=== PATIENT | female | born 1960 | race Caucasian/White ===

== ENCOUNTER 2023-01-01 07:15 | Inpatient (IN) ==
[2023-01-01] MEDS ORDERED: ONDANSETRON INJ 2 MG/ML 2 ML VIAL IV STA ×2 (07:43→08:36)
[2023-01-01] MEDS ORDERED: MECLIZINE HCL 25 MG TAB PO STA (07:43)
--- NOTE | 2023-01-01 07:49 | Emergency Department Note ---
History of Present Illness General Chief complaint: Vertigo Stated complaint: VOMITING, DIZZY Time Seen by Provider: 01/01/23 07:34 Source: patient and family ( is at bedside) Mode of arrival: ambulatory Limitations: no limitations History of Present Illness This patient is a 59-year-old female who woke up at 545 and sat up and felt like the room was spinning. She got nauseated she had diarrhea and vomited. Her symptoms are worse with moving she does feel tingling in both of her legs she also feels like her vision is off in both of her eyes. No chest pain or shortness of breath .no headache. no fall or trauma. she is on no blood thinners. She had a history of a complicated migraine in the past she had a stroke work-up for she says. No fever or chills. no cough. No history of similar Home Medications Medication Instructions Recorded Confirmed Type atorvastatin 20 mg tablet (Lipitor) 20 mg PO QAM 10/11/20 01/01/23 History hydrochlorothiazide 25 mg tablet 25 mg PO QAM 10/11/20 01/01/23 History levothyroxine 75 mcg tablet 75 mcg PO QAM 10/11/20 01/01/23 History famotidine 20 mg tablet 20 mg PO BID 12/28/21 01/01/23 History pantoprazole 40 mg tablet,delayed 40 mg PO QAM 12/28/21 01/01/23 History release baclofen 10 mg tablet 10 mg PO HS PRN Muscle Spasm 01/01/23 01/01/23 History bupropion HCl 300 mg 24 hr tablet, 300 mg PO DAILY 01/01/23 01/01/23 History extended release celecoxib 100 mg capsule 100 mg PO BID 01/01/23 01/01/23 History hydroxyzine HCl 25 mg tablet 25 mg PO QID PRN Anxiety 01/01/23 01/01/23 History naltrexone 50 mg tablet 25 mg PO BID 01/01/23 01/01/23 History propranolol 20 mg tablet 20 mg PO BID 01/01/23 01/01/23 History valsartan 80 mg tablet 80 mg PO DAILY 01/01/23 01/01/23 History Allergies Allergy/AdvReac Type Severity Reaction Status Date / Time demeclocycline Allergy Intermediate Hives Verified 01/04/22 08:02 [From Declomycin] Past Med/Surg History Medical History Anxiety and depression Arthritis Asthma HAS NO RESCUE INHALER Degenerative disc disease Essential tremor Gastritis ? REASON FOR PROCEDURE History of colon polyps History of COVID-19 05/2021>FEVER/CHEST CONGESTION *RESOLVED Hyperlipidemia Hypertension Hypothyroidism Migraine Morbid obesity Sleep apnea CPAP Spinal stenosis Surgical History Family history of reaction to anesthesia FATHER>SLOW TO WAKE UP H/O lumbar discectomy H/O sinus surgery History of appendectomy History of cataract surgery RT/LEFT History of colonoscopy History of esophagogastroduodenoscopy (EGD) History of hysterectomy History of partial knee replacement RT History of repair of rotator cuff RT/LEFT History of tonsillectomy and adenoidectomy Social History Smoking Status: Never smoker Second Hand Exposure: No; Do You Dip or Chew Tobacco: No; Tobacco Cessation Education Requested by Patient: No Hx Alcohol Use: No Hx Substance Use: No Preferred Language: Bulgarian Laundry Sorter Required: No Beliefs That Will Affect Care: None Current Living Situation: Spouse Other Information That Helps Us Care for You: No Feels Safe at Home: Yes Safety Concerns: Feels Safe At This Time Assistive Devices: CPAP Review of Systems A total of 10 systems reviewed and were otherwise negative Physical Exam Vital Signs Vital Signs - 24 hr 01/01/23 07:23 01/01/23 07:39 01/01/23 07:35 Temperature 36.5 C Temperature Source Oral Pulse Rate 49 L 49 L Pulse Rate [Apical] 48 L Pulse Rhythm [Apical] Regular Respiratory Rate 18 16 Respiratory Effort / Characteristics Non-Labored Spontaneous Non-Labored Respiratory Depth Normal Normal Respiratory Pattern Regular Blood Pressure 147/77 H Blood Pressure [Right Arm] 148/98 H Blood Pressure Mean 100 Blood Pressure Mean [Right Arm] 114 Blood Pressure Position [Right Arm] Pulse Oximetry 96 98 Oxygen Delivery Method Room Air Room Air Sepsis Recent Fever Within 48 Hours No Sepsis New/Unexplained Change in Mental Status No Sepsis Action Taken by Nursing No Action Required 01/01/23 08:00 01/01/23 08:20 Temperature Temperature Source Pulse Rate Pulse Rate [Apical] 51 L 51 L Pulse Rhythm [Apical] Regular Regular Respiratory Rate 16 16 Respiratory Effort / Characteristics Non-Labored Non-Labored Respiratory Depth Normal Normal Respiratory Pattern Blood Pressure Blood Pressure [Right Arm] 167/80 H 165/95 H Blood Pressure Mean Blood Pressure Mean [Right Arm] 109 118 Blood Pressure Position [Right Arm] Standing Pulse Oximetry 98 97 Oxygen Delivery Method Room Air Room Air Sepsis Recent Fever Within 48 Hours Sepsis New/Unexplained Change in Mental Status Sepsis Action Taken by Nursing General: Well developed well nourished somewhat pale and diaphoretic middle-age female who in no acute respiratory distress, breathing comfortably on room air. Normal speech, nonslurred. Answers all questions appropriately alert [place] x3 she is holding emesis bag HEENT: Normal cephalic atraumatic. Pupils are equal round and reactive to light. Extraocular movements are intact. No nystagmus. Oropharynx is pink with moist mucous membranes. No swelling of the mouth lips or tongue. Neck: Supple with a midline trachea. No meningeal signs or stiffness, no JVD or bruits. No Stridor. Chest: Clear to auscultation bilaterally. No wheezes or rhonchi. No increased work of breathing. Heart: Regular rate and rhythm without murmurs or gallops. Abdomen: Soft nontender, nondistended without rebound guarding or rigidity. Extremities: No cyanosis clubbing or edema. No calf tenderness or assymetry Spine/Back. Non tender to palpation. No CVA tenderness Skin: Good turgor without rashes. Neurologic exam: Cranial nerves two through 12 are intact. Motor and sensation are intact and symmetrical throughout. No tremor. Course Administered Medications Hydroxyzine HCl (Hydroxyzine Hcl 25 Mg Tab) 25 mg PO QID PRN PRN Reason: Anxiety Stop: 01/31/23 10:40 Last Admin: 01/01/23 13:07 Dose: 25 mg Documented By: GONZALEZ Sodium Chloride (Nss 1000ml) 1,000 mls @ 50 mls/hr IV .Q20H KEENAN Stop: 01/31/23 07:44 Last Admin: 01/01/23 08:01 Dose: 50 mls/hr Documented By: DINA Meclizine HCl (Meclizine Hcl 25 Mg Tab) 25 mg PO TID PRN PRN Reason: Vertigo Stop: 01/31/23 10:40 Last Admin: 01/01/23 13:07 Dose: 25 mg Documented By: ES Discontinued Medications Aspirin (Aspirin Chew 324 Mg) 324 mg PO NOW STA Stop: 01/01/23 08:27 Last Admin: 01/01/23 08:34 Dose: 324 mg Documented By: DINA Ioversol (Optiray 320 125ml) 120 ml IV ONCE ONE Stop: 01/01/23 07:51 Last Admin: 01/01/23 07:51 Dose: 120 ml Documented By: HERIBERTO Meclizine HCl (Meclizine Hcl 25 Mg Tab) 25 mg PO NOW STA Stop: 01/01/23 07:44 Last Admin: 01/01/23 08:01 Dose: 25 mg Documented By: DINA Ondansetron HCl (Ondansetron Inj 2 Mg/Ml 2 Ml Vial) 4 mg IV NOW STA Stop: 01/01/23 07:44 Last Admin: 01/01/23 08:01 Dose: 4 mg Documented By: DINA Ondansetron HCl (Ondansetron Inj 2 Mg/Ml 2 Ml Vial) 4 mg IV NOW STA Stop: 01/01/23 08:37 Last Admin: 01/01/23 08:59 Dose: 4 mg Documented By: DINA Medical Decision Making Differential Diagnosis Peripheral vertigo, central vertigo, CVA, anemia, arrhythmia, cardiac disease, electrolyte or metabolic abnormality, intracranial process Medical Records Attestation: I reviewed the patient's medical records. Home Medications Current Medication List: was personally reviewed by me Laboratory Data Attestation: I reviewed the patient's lab results. 01/01/23 07:30 01/01/23 07:30 Lab Results 01/01/23 01/01/23 01/01/23 Range/Units 07:30 07:30 07:30 WBC 9.99 (4.8-10.8) K/ul RBC 4.64 (4.20-5.40) M/uL Hgb 15.5 (12.0-16.0) g/dl Hct 44.5 (37.0-47.0) % MCV 95.9 (80.0-100.0) fL MCH 33.4 (25.0-34.0) pg MCHC 34.8 (32.0-36.0) g/dL RDW Std Deviation 49.6 H (36.4-46.3) fL RDW Coeff of Darshan 14.1 (11.5-14.5) % Plt Count 235 (130-400) K/uL MPV 9.6 (9.4-12.4) fL Immature Gran % (Auto) 0.4 % Neut % (Auto) 63.2 % Lymph % (Auto) 27.5 % [place] % (Auto) 7.3 % Eos % (Auto) 1.0 % Baso % (Auto) 0.6 % Neut # (Auto) 6.31 (1.40-6.50) K/uL Lymph # (Auto) 2.75 (1.2-3.4) K/uL [place] # (Auto) 0.73 H (0.11-0.59) K/uL Eos # (Auto) 0.10 (0-0.50) K/uL Baso # (Auto) 0.06 (0-0.2) K/uL Immature Gran # (Auto) 0.04 (0.01-0.20) K/uL PT 10.6 (9.0-12.0) Seconds INR 1.0 (0.9-1.1) APTT 23.8 (21.0-31.0) Seconds PTT Ratio 0.8 Sodium 140 (136-145) mmol/L Potassium 3.9 (3.5-5.1) mmol/L Chloride 106 (98-107) mmol/L Carbon Dioxide 27 (21-32) mmol/L Anion Gap 7 (3-11) BUN 21 (6-23) mg/dl Creatinine 0.81 (0.6-1.2) mg/dl Est Cr Clr Drug Dosing Not Reportable Est GFR ( Amer) 89.6 ml/min Est GFR (Non-Af Amer) 77.3 ml/min BUN/Creatinine Ratio 25.9 H (10-20) Glucose 144 H (70-99(Fasting)) mg/dl POC Glucose (70-99) mg/dl Calcium 9.5 (8.6-10.3) mg/dl Magnesium 1.9 (1.7-2.4) mg/dl Total Bilirubin 1.1 H (0.2-1.0) mg/dl AST 19 (13-39) U/L ALT 13 (7-52) U/L Alkaline Phosphatase 92 (34-104) U/L Troponin I High Sens 4.3 (0-14) pg/ml Total Protein 6.9 (6.0-8.3) gm/dl Albumin 4.2 (3.4-5.0) gm/dl Globulin 2.7 (2.5-4.0) gm/dl Albumin/Globulin Ratio 1.6 (0.9-2) TSH (0.300-4.500) uIu/ml Free T4 (0.61-1.60) ng/dl 01/01/23 01/01/23 Range/Units 07:30 07:46 WBC (4.8-10.8) K/ul RBC (4.20-5.40) M/uL Hgb (12.0-16.0) g/dl Hct (37.0-47.0) % MCV (80.0-100.0) fL MCH (25.0-34.0) pg MCHC (32.0-36.0) g/dL RDW Std Deviation (36.4-46.3) fL RDW Coeff of Darshan (11.5-14.5) % Plt Count (130-400) K/uL MPV (9.4-12.4) fL Immature Gran % (Auto) % Neut % (Auto) % Lymph % (Auto) % [place] % (Auto) % Eos % (Auto) % Baso % (Auto) % Neut # (Auto) (1.40-6.50) K/uL Lymph # (Auto) (1.2-3.4) K/uL [place] # (Auto) (0.11-0.59) K/uL Eos # (Auto) (0-0.50) K/uL Baso # (Auto) (0-0.2) K/uL Immature Gran # (Auto) (0.01-0.20) K/uL PT (9.0-12.0) Seconds INR (0.9-1.1) APTT (21.0-31.0) Seconds PTT Ratio Sodium (136-145) mmol/L Potassium (3.5-5.1) mmol/L Chloride (98-107) mmol/L Carbon Dioxide (21-32) mmol/L Anion Gap (3-11) BUN (6-23) mg/dl Creatinine (0.6-1.2) mg/dl Est Cr Clr Drug Dosing Est GFR ( Amer) ml/min Est GFR (Non-Af Amer) ml/min BUN/Creatinine Ratio (10-20) Glucose (70-99(Fasting)) mg/dl POC Glucose 131 H (70-99) mg/dl Calcium (8.6-10.3) mg/dl Magnesium (1.7-2.4) mg/dl Total Bilirubin (0.2-1.0) mg/dl AST (13-39) U/L ALT (7-52) U/L Alkaline Phosphatase (34-104) U/L Troponin I High Sens (0-14) pg/ml Total Protein (6.0-8.3) gm/dl Albumin (3.4-5.0) gm/dl Globulin (2.5-4.0) gm/dl Albumin/Globulin Ratio (0.9-2) TSH 5.540 H (0.300-4.500) uIu/ml Free T4 0.83 (0.61-1.60) ng/dl Imaging Data Attestation: I personally reviewed and interpreted this imaging study as follows: My Impression: Head CT-no hemorrhage or mass effect seen Radiologist's Impression: Head CT 01/01/23 07:[address] OF THE BRAIN; CT ANGIOGRAM OF THE BRAIN; CT ANGIOGRAM OF THE NECK CLINICAL HISTORY: Neurological deficit. Stroke like symptoms. COMPARISON STUDY: No priors. TECHNIQUE: Unenhanced axial CT scan of the brain is performed. Subsequently, following the IV administration of 120 of Optiray 320, CT angiogram of the head and neck was performed from the aortic arch to the vertex. Images are reviewed in the axial, sagittal, and coronal planes. 3-D MIPS images are created and assessed. IV contrast was administered without complication. All measurements were calculated based on NASCET criteria. A dose lowering technique was utilized adhering to the principles of ALARA. CT DOSE: 1319.27 mGy.cm FINDINGS: Brain parenchyma: The brain parenchyma is normal in appearance. There is no hemorrhage, mass effect, or evidence of acute territorial ischemia by CT criteria. There is no evidence of enhancing mass lesion on the angiogram phase images. The ventricles, sulci, and cisterns are normal in configuration. A choroid fissure cyst versus prominent perivascular space is seen on the left. Back-white matter differentiation is preserved. No extra-axial fluid collection is seen. Thoracic aorta: Visualized portions of the thoracic aorta are normal in caliber. The aortic arch demonstrates standard 3-vessel anatomy. Right carotid arterial system: The right common carotid artery is widely patent, as are the right internal and external carotid arteries. Calcified plaque is noted in the carotid bulb. Left carotid arterial system: The left common carotid artery is widely patent, as on the left internal and external carotid arteries. Calcified plaque is noted in the carotid bulb. Vertebral arteries: The vertebral arteries are widely patent bilaterally noting mild left-sided dominance. Subclavian arteries: Widely patent bilaterally. Intracranial vasculature: There is atherosclerotic calcification of the cavernous carotid and vertebral arteries. The internal carotid arteries are patent at the skull base, as are the anterior and middle cerebral arteries bilaterally. The vertebrobasilar system and posterior cerebral arteries are widely patent. The left vertebral artery is dominant. There is no aneurysm, high-grade stenosis, or focal vessel cut off seen throughout the intracranial circulation. Jugular veins: Patent bilaterally. Dural sinuses: Patent. Lung apices: Partially visualized upper lobe lung parenchyma appears clear. Soft tissues: The visualized pharyngeal soft tissues are normal in appearance no ting angiographic phase technique. The oropharyngeal airway appears widely patent. The salivary and thyroid glands are normal in appearance. No cervical lymphadenopathy is seen. Skeletal structures: The skeletal structures are osteopenic. The calvarium appears intact. The cervical spine is maintained noting multilevel spondylosis. No lytic or blastic lesion is seen. Orbits: The bony orbits are intact. Orbital contents are normal as visualized n oting bilateral ocular lens implants. Sinuses and mastoids: Trace mucosal thickening is noted in the right maxillary antrum. The remaining paranasal sinuses are clear. The mastoid air cells are well pneumatized. IMPRESSION: 1. There is no hemorrhage, mass effect, or evidence of acute territorial ischemia by CT criteria. 2. Unremarkable CT angiogram of the brain. 3. Unremarkable CT angiogram of the neck. ACT 112: Negative or not required by law. Electronically signed by: Otoniel Parnell M.D. 01/01/2023 8:06 AM Head CTA 01/01/23 07:[address] OF THE BRAIN; CT ANGIOGRAM OF THE BRAIN; CT ANGIOGRAM OF THE NECK CLINICAL HISTORY: Neurological deficit. Stroke like symptoms. COMPARISON STUDY: No priors. TECHNIQUE: Unenhanced axial CT scan of the brain is performed. Subsequently, following the IV administration of 120 of Optiray 320, CT angiogram of the head and neck was performed from the aortic arch to the vertex. Images are reviewed in the axial, sagittal, and coronal planes. 3-D MIPS images are created and assessed. IV contrast was administered without complication. All measurements were calculated based on NASCET criteria. A dose lowering technique was utilized adhering to the principles of ALARA. CT DOSE: 1319.27 mGy.cm FINDINGS: Brain parenchyma: The brain parenchyma is normal in appearance. There is no hemorrhage, mass effect, or evidence of acute territorial ischemia by CT criteria. There is no evidence of enhancing mass lesion on the angiogram phase images. The ventricles, sulci, and cisterns are normal in configuration. A choroid fissure cyst versus prominent perivascular space is seen on the left. Back-white matter differentiation is preserved. No extra-axial fluid collection is seen. Thoracic aorta: Visualized portions of the thoracic aorta are normal in caliber. The aortic arch demonstrates standard 3-vessel anatomy. Right carotid arterial system: The right common carotid artery is widely patent, as are the right internal and external carotid arteries. Calcified plaque is noted in the carotid bulb. Left carotid arterial system: The left common carotid artery is widely patent, as on the left internal and external carotid arteries. Calcified plaque is noted in the carotid bulb. Vertebral arteries: The vertebral arteries are widely patent bilaterally noting mild left-sided dominance. Subclavian arteries: Widely patent bilaterally. Intracranial vasculature: There is atherosclerotic calcification of the cavernous carotid and vertebral arteries. The internal carotid arteries are patent at the skull base, as are the anterior and middle cerebral arteries bilaterally. The vertebrobasilar system and posterior cerebral arteries are widely patent. The left vertebral artery is dominant. There is no aneurysm, high-grade stenosis, or focal vessel cut off seen throughout the intracranial circulation. Jugular veins: Patent bilaterally. Dural sinuses: Patent. Lung apices: Partially visualized upper lobe lung parenchyma appears clear. Soft tissues: The visualized pharyngeal soft tissues are normal in appearance noting angiographic phase technique. The oropharyngeal airway appears widely patent. The salivary and thyroid glands are normal in appearance. No cervical lymphadenopathy is seen. Skeletal structures: The skeletal structures are osteopenic. The calvarium appears intact. The cervical spine is maintained noting multilevel spondylosis. No lytic or blastic lesion is seen. Orbits: The bony orbits are intact. Orbital contents are normal as visualized noting bilateral ocular lens implants. Sinuses and mastoids: Trace mucosal thickening is noted in the right maxillary antrum. The remaining paranasal sinuses are clear. The mastoid air cells are well pneumatized. IMPRESSION: 1. There is no hemorrhage, mass effect, or evidence of acute territorial ischemia by CT criteria. 2. Unremarkable CT angiogram of the brain. 3. Unremarkable CT angiogram of the neck. ACT 112: Negative or not required by law. Electronically signed by: Otoniel Parnell M.D. 01/01/2023 8:06 AM Neck CTA 01/01/23 07:[address] OF THE BRAIN; CT ANGIOGRAM OF THE BRAIN; CT ANGIOGRAM OF THE NECK CLINICAL HISTORY: Neurological deficit. Stroke like symptoms. COMPARISON STUDY: No priors. TECHNIQUE: Unenhanced axial CT scan of the brain is performed. Subsequently, following the IV administration of 120 of Optiray 320, CT angiogram of the head and neck was performed from the aortic arch to the vertex. Images are reviewed in the axial, sagittal, and coronal planes. 3-D MIPS images are created and assessed. IV contrast was administered without complication. All measurements were calculated based on NASCET criteria. A dose lowering technique was utilized adhering to the principles of ALARA. CT DOSE: 1319.27 mGy.cm FINDINGS: Brain parenchyma: The brain parenchyma is normal in appearance. There is no hemorrhage, mass effect, or evidence of acute territorial ischemia by CT criteria. There is no evidence of enhancing mass lesion on the angiogram phase images. The ventricles, sulci, and cisterns are normal in configuration. A choroid fissure cyst versus prominent perivascular space is seen on the left. G ray-white matter differentiation is preserved. No extra-axial fluid collection is seen. Thoracic aorta: Visualized portions of the thoracic aorta are normal in caliber. The aortic arch demonstrates standard 3-vessel anatomy. Right carotid arterial system: The right common carotid artery is widely patent, as are the right internal and external carotid arteries. Calcified plaque is noted in the carotid bulb. Left carotid arterial system: The left common carotid artery is widely patent, as on the left internal and external carotid arteries. Calcified plaque is noted in the carotid bulb. Vertebral arteries: The vertebral arteries are widely patent bilaterally noting mild left-sided dominance. Subclavian arteries: Widely patent bilaterally. Intracranial vasculature: There is atherosclerotic calcification of the cavernous carotid and vertebral arteries. The internal carotid arteries are patent at the skull base, as are the anterior and middle cerebral arteries bilaterally. The vertebrobasilar system and posterior cerebral arteries are widely patent. The left vertebral artery is dominant. There is no aneurysm, high-grade stenosis, or focal vessel cut off seen throughout the intracranial circulation. Jugular veins: Patent bilaterally. Dural sinuses: Patent. Lung apices: Partially visualized upper lobe lung parenchyma appears clear. Soft tissues: The visualized pharyngeal soft tissues are normal in appearance noting angiographic phase technique. The oropharyngeal airway appears widely patent. The salivary and thyroid glands are normal in appearance. No cervical lymphadenopathy is seen. Skeletal structures: The skeletal structures are osteopenic. The calvarium appears intact. The cervical spine is maintained noting multilevel spondylosis. No lytic or blastic lesion is seen. Orbits: The bony orbits are intact. Orbital contents are normal as visualized noting bilateral ocular lens implants. Sinuses and mastoids: Trace mucosal thickening is noted in the right maxillary antrum. The remaining paranasal sinuses are clear. The mastoid air cells are well pneumatized. IMPRESSION: 1. There is no hemorrhage, mass effect, or evidence of acute territorial ischemia by CT criteria. 2. Unremarkable CT angiogram of the brain. 3. Unremarkable CT angiogram of the neck. ACT 112: Negative or not required by law. Electronically signed by: Otoniel Parnell M.D. 01/01/2023 8:06 AM ECG Data Attestation: I personally reviewed and interpreted this ECG as follows: Indication: + weakness (Dizziness) Rate (beats per minute): 48 Rhythm: + sinus bradycardia ECG Intervals/blocks: + Normal QRS, + Normal QT and + Normal CT ECG [place]: + Normal ECG ST segments: + Normal ST segments ECG Findings: no PACs or no PVCs Comparison ECG Date: no prior available MDM Narrative This patient comes in as described above she was placed in room C9. Upon evaluation, I am concerned that she looks pale and diaphoretic. She is bradycardic however has normal blood pressure. Most likely this is peripheral vertigo but I am concerned about potentially central neurologic issues she says her vision feels off to she will tingling in her legs. Her her EKG shows sinus bradycardia without any ischemic changes or changes to suggest STEMI which would still be in consideration as well. I did call a stroke alert to get her care expedited and to help rule out a central process in the meantime she was given 1 L IV normal saline fluid bolus Zofran 4 mg IV for nausea and meclizine p.o. She was reassessed frequently. Multiple blood testing was obtained and she was placed on a foreign banknote teller. Given her neurologic symptoms I did call a stroke alert. I discussed the case in consultation with Dr. Morales evaluated the patient. He does not feel the patient would meet lytic criteria as it is most likely peripheral vertigo but she told him that she started having numbness in the left side last night at 11. He does recommending that we keep her in the hospital for MRI and further evaluation from a stroke standpoint. The patient looks a lot better after receiving medication and hydration. [facility] these measures Continuous cardiac monitoring: Orders placed in EMR for continuous cardiac monitoring: Upon my evaluation patient was noted to be in sinus bradycardia with a rate of 48 Impression & Plan Stroke-like symptoms, Vertigo, Sinus bradycardia, Tingling of left upper extremity and left side of face, COVID Discharge Plan Visit Data Chief Complaint: Vertigo Stated Complaint: VOMITING, DIZZY ED Provider: Gerardo Harley Discharge Problem: Stroke-like symptoms, Vertigo, Sinus bradycardia, Tingling of left upper extremity and left side of face, COVID Patient Disposition: Admitted As Inpatient Discharge Instructions Interventions: ED Discharge Assessment Last Done: 01/01/23 10:19
[2023-01-01] MEDS ORDERED: OPTIRAY 320 125ml IV ONE (07:50)
[2023-01-01 08:01] LABS: Basophils # (auto) 0.06 K/uL (0-0.2); Basophils % (auto) 0.6 %; Hematocrit (blood only) 44.5 % (37.0-47.0); Hemoglobin 15.5 g/dl (12.0-16.0); Immature Granulocytes # (auto) 0.04 K/uL (0.01-0.20); Immature Granulocytes % (auto) 0.4 %; Lymphocytes # (auto) 2.75 K/uL (1.2-3.4); Lymphocytes % (auto) 27.5 %; Mean Corpuscular Hemoglobin 33.4 pg (25.0-34.0); Mean Corpuscular Hgb Conc 34.8 g/dL (32.0-36.0); Mean Corpuscular Volume 95.9 fL (80.0-100.0); Mean Platelet Volume 9.6 fL (9.4-12.4); Monocytes # (auto) 0.73 K/uL (0.11-0.59); Monocytes % (auto) 7.3 %; Neutrophils # (auto) 6.31 K/uL (1.40-6.50); Neutrophils % (auto) 63.2 %; Platelet Count 235 K/uL (130-400); RDW Coefficient of Variation 14.1 % (11.5-14.5); RDW Standard Deviation 49.6 fL (36.4-46.3); Red Blood Count 4.64 M/uL (4.20-5.40); White Blood Count 9.99 K/ul (4.8-10.8)
[2023-01-01] MEDS: SODIUM CHLORIDE 0.9% 1000ML 1,000 ML IV SCH (08:01)
--- NOTE | 2023-01-01 08:09 | CT Scan Report ---
UNENHANCED CT OF THE BRAIN; CT ANGIOGRAM OF THE BRAIN; CT ANGIOGRAM OF THE NECK CLINICAL HISTORY: Neurological deficit. Stroke like symptoms. COMPARISON STUDY: No priors. TECHNIQUE: Unenhanced axial CT scan of the brain is performed. Subsequently, following the IV adminis tration of 120 of Optiray 320, CT angiogram of the head and neck was performed from the aortic arch t o the vertex. Images are reviewed in the axial, sagittal, and coronal planes. 3-D MIPS images are cre ated and assessed. IV contrast was administered without complication. All measurements were calculate d based on NASCET criteria. A dose lowering technique was utilized adhering to the principles of ALA RA. CT DOSE: 1319.27 mGy.cm FINDINGS: Brain parenchyma: The brain parenchyma is normal in appearance. There is no hemorrhage, mass effect, or evidence of acute territorial ischemia by CT criteria. There is no evidence of enhancing mass lesi on on the angiogram phase images. The ventricles, sulci, and cisterns are normal in configuration. A choroid fissure cyst versus prominent perivascular space is seen on the left. Back-white matter diffe rentiation is preserved. No extra-axial fluid collection is seen. Thoracic aorta: Visualized portions of the thoracic aorta are normal in caliber. The aortic arch demo nstrates standard 3-vessel anatomy. Right carotid arterial system: The right common carotid artery is widely patent, as are the right int ernal and external carotid arteries. Calcified plaque is noted in the carotid bulb. Left carotid arterial system: The left common carotid artery is widely patent, as on the left interna l and external carotid arteries. Calcified plaque is noted in the carotid bulb. Vertebral arteries: The vertebral arteries are widely patent bilaterally noting mild left-sided domin ance. Subclavian arteries: Widely patent bilaterally. Intracranial vasculature: There is atherosclerotic calcification of the cavernous carotid and vertebr al arteries. The internal carotid arteries are patent at the skull base, as are the anterior and midd le cerebral arteries bilaterally. The vertebrobasilar system and posterior cerebral arteries are wide ly patent. The left vertebral artery is dominant. There is no aneurysm, high-grade stenosis, or focal vessel cut off seen throughout the intracranial circulation. Jugular veins: Patent bilaterally. Dural sinuses: Patent. Lung apices: Partially visualized upper lobe lung parenchyma appears clear. Soft tissues: The visualized pharyngeal soft tissues are normal in appearance noting angiographic pha se technique. The oropharyngeal airway appears widely patent. The salivary and thyroid glands are nor mal in appearance. No cervical lymphadenopathy is seen. Skeletal structures: The skeletal structures are osteopenic. The calvarium appears intact. The cervic al spine is maintained noting multilevel spondylosis. No lytic or blastic lesion is seen. Orbits: The bony orbits are intact. Orbital contents are normal as visualized noting bilateral ocular lens implants. Sinuses and mastoids: Trace mucosal thickening is noted in the right maxillary antrum. The remaining paranasal sinuses are clear. The mastoid air cells are well pneumatized. IMPRESSION: 1. There is no hemorrhage, mass effect, or evidence of acute territorial ischemia by CT criteria. 2. Unremarkable CT angiogram of the brain. 3. Unremarkable CT angiogram of the neck. ACT 112: Negative or not required by law. Electronically signed by: Otoniel Parnell M.D. 01/01/2023 8:06 AM
[2023-01-01 08:13] LABS: Partial Thromboplastin Ratio 0.8; Partial Thromboplastin Time 23.8 Seconds (21.0-31.0); Prothrombin Time 10.6 Seconds (9.0-12.0)
[2023-01-01 08:24] LABS: Alanine Aminotransferase 13 U/L (7-52); Albumin Globulin Ratio 1.6 (0.9-2); Albumin Level 4.2 gm/dl (3.4-5.0); Alkaline Phosphatase 92 U/L (34-104); Anion Gap 7 (3-11); Aspartate Aminotransferase 19 U/L (13-39); BUN Creatinine Ratio 25.9 (10-20); Bilirubin,Total 1.1 mg/dl (0.2-1.0); Blood Urea Nitrogen 21 mg/dl (6-23); Calcium 9.5 mg/dl (8.6-10.3); Carbon Dioxide 27 mmol/L (21-32); Chloride 106 mmol/L (98-107); Est GFR (African American) 89.6 ml/min; Est GFR (Non-African American) 77.3 ml/min; Globulin 2.7 gm/dl (2.5-4.0); Glucose 144 mg/dl (70-99(Fasting)); Magnesium 1.9 mg/dl (1.7-2.4); Potassium 3.9 mmol/L (3.5-5.1); Sodium 140 mmol/L (136-145); Total Protein 6.9 gm/dl (6.0-8.3)
[2023-01-01] MEDS ORDERED: ASPIRIN CHEW 324 MG PO STA (08:26)
[2023-01-01 08:31] LABS: Troponin I High Sensitivity 4.3 pg/ml (0-14)
--- NOTE | 2023-01-01 10:21 | History & Physical Report ---
Date of Service January 01, 2023 Assessment & Plan (1) Vertigo: Plan: Admit to telemetry Patient presenting from home for evaluation of dizziness, diaphoresis, nausea, vomiting. Patient also reports associated left-sided tingling. In the ED, head CT, head and neck CTAs unremarkable. Brain MRI Continue supportive care with IVF, nausea control, PRN meclizine. Consider PT eval for Kwaku maneuver ? Due to symptomatic sinus bradycardia --continue to monitor on telemetry, echo (2) Sinus bradycardia: Plan: Patient's heart rate consistently in the 40s while in the ED EKG shows sinus bradycardia rate 48 Hold propanolol Echo Consider cardiology consult (3) Essential tremor: Plan: Holding propanolol due to bradycardia (4) Hypertension: Plan: BP controlled, continue HCTZ and valsartan (5) Hypothyroidism: Plan: TSH 2.29 03/2022, update TSH Continue levothyroxine as appropriate (6) Morbid obesity: Plan: Follows with GI nutrition/weight management On naltrexone (7) Sleep apnea: Plan: CPAP as per home settings DVT PROPHYLAXIS SCDs for now Patient seen in collaboration with Dr. Purcell. I spent a total of 75 minutes coordinating, documenting, and providing care for this patient excluding time spent in the performance of separately billed services. This included personally reviewing all current laboratories and imaging studies, medication reconciliation, outpatient chart review, and disc ussion with specialists. History of Present Illness Chief Complaint: Dizziness Primary Care Provider: Kolby Carias MD 62-year-old female with PMH Edu's, dyslipidemia, MICHAEL on CPAP, HTN, morbid obesity, degenerative disc disease, essential tremor, depression, anxiety, and other problems listed below who presents to the ED for evaluation of dizziness. Patient reports that whenever she woke up this morning and sat on the edge of the bed, she had sudden onset of dizziness/room spinning around her. She was able to walk to the bathroom and she reports that she was very sweaty and nauseated. She reports associated vomiting and diarrhea. She then presented to the ED for further evaluation. Last night, patient reports she had some tingling in her left leg which was different than the usual tingling she gets from degenerative disc disease. With this morning's episode, she also reports associated tingling in the left leg, left arm, left neck, and into the face slightly. She denies chest pain, shortness of breath, palpitations. Denies headache and blurred vision. No abdominal pain. She denies any other recent illnesses, fevers, chills. No urinary symptoms. In the ED, labs are unremarkable, head and neck CTAs were unremarkable for acute findings. EKG demonstrates sinus bradycardia. She was given full dose aspirin, meclizine, Zofran, IVF. Allergies Allergy/AdvReac Type Severity Reaction Status Date / Time demeclocycline Allergy Intermediate Hives Verified 01/04/22 08:02 [From Declomycin] Home Medications Medication Instructions Recorded Confirmed Type atorvastatin 20 mg tablet (Lipitor) 20 mg PO QAM 10/11/20 01/01/23 History hydrochlorothiazide 25 mg tablet 25 mg PO QAM 10/11/20 01/01/23 History levothyroxine 75 mcg tablet 75 mcg PO QAM 10/11/20 01/01/23 History famotidine 20 mg tablet 20 mg PO BID 12/28/21 01/01/23 History pantoprazole 40 mg tablet,delayed 40 mg PO QAM 12/28/21 01/01/23 History release baclofen 10 mg tablet 10 mg PO HS PRN Muscle Spasm 01/01/23 01/01/23 History bupropion HCl 300 mg 24 hr tablet, 300 mg PO DAILY 01/01/23 01/01/23 History extended release celecoxib 100 mg capsule 100 mg PO BID 01/01/23 01/01/23 History hydroxyzine HCl 25 mg tablet 25 mg PO QID PRN Anxiety 01/01/23 01/01/23 History naltrexone 50 mg tablet 25 mg PO BID 01/01/23 01/01/23 History propranolol 20 mg tablet 20 mg PO BID 01/01/23 01/01/23 History valsartan 80 mg tablet 80 mg PO DAILY 01/01/23 01/01/23 History Past Med/Surg History Medical History Anxiety and depression Arthritis Asthma HAS NO RESCUE INHALER Degenerative disc disease Essential tremor Gastritis ? REASON FOR PROCEDURE History of colon polyps History of COVID-19 05/2021>FEVER/CHEST CONGESTION *RESOLVED Hyperlipidemia Hypertension Hypothyroidism Migraine Morbid obesity Sleep apnea CPAP Spinal stenosis Surgical History Family history of reaction to anesthesia FATHER>SLOW TO WAKE UP H/O lumbar discectomy H/O sinus surgery History of appendectomy History of cataract surgery RT/LEFT History of colonoscopy History of esophagogastroduodenoscopy (EGD) History of hysterectomy History of partial knee replacement RT History of repair of rotator cuff RT/LEFT History of tonsillectomy and adenoidectomy Social History Smoking Status: Never smoker Second Hand Exposure: No; Do You Dip or Chew Tobacco: No; Tobacco Cessation Education Requested by Patient: No Hx Alcohol Use: No Hx Substance Use: No Preferred Language: Bengali 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 Beliefs That Will Affect Care: None Current Living Situation: Spouse Other Information That Helps Us Care for You: No Feels Safe at Home: Yes Safety Concerns: Feels Safe At This Time Assistive Devices: CPAP Review of Systems Review of Systems: ROS per HPI, all other systems reviewed and negative Physical Exam Constitutional: WD/WN, vitals as above + obese Eyes: PERRL, conjunctivae normal, anicteric sclerae ENMT: external ear and nose normal, oropharynx normal Respiratory: normal respiratory effort, lungs clear to auscultation Cardiovascular: Rate/Rhythm: regular rhythm and + bradycardic Vessels: normal peripheral pulses Extremities: no edema Gastrointestinal (Abdomen): normal bowel sounds, soft, nontender, no hepatosplenomegaly Musculoskeletal: no cyanosis or clubbing, extremities motor strength 5/5 Skin: no rashes, warm and dry Neurologic: PERRL, EOMI, accommodation nl, no face palsy, no dysarthria Psychiatric: A+Ox3, euthymic affect Results & Data Results & Data Vital Signs (Past 12 Hours) Vital Signs Temp Pulse Pulse Resp BP BP Pulse Ox 01/01/23 09:20 51 L 16 141/91 H 99 01/01/23 08:20 51 L 16 165/95 H 97 01/01/23 08:00 51 L 16 167/80 H 98 01/01/23 07:35 48 L 16 148/98 H 98 01/01/23 07:39 49 L 01/01/23 07:23 36.5 C 49 L 18 147/77 H 96 O2 Del Method 01/01/23 09:20 Room Air 01/01/23 08:20 Room Air 01/01/23 08:00 Room Air 01/01/23 07:35 Room Air 01/01/23 07:39 01/01/23 07:23 Room Air Laboratory Results Short CBC 01/01/23 Range/Units 07:30 WBC 9.99 (4.8-10.8) K/ul Hgb 15.5 (12.0-16.0) g/dl Hct 44.5 (37.0-47.0) % Plt Count 235 (130-400) K/uL BMP 01/01/23 07:30 Sodium 140 Potassium 3.9 Chloride 106 Carbon Dioxide 27 BUN 21 Creatinine 0.81 Glucose 144 H Calcium 9.5 Liver Function 01/01/23 Range/Units 07:30 Total Bilirubin 1.1 H (0.2-1.0) mg/dl AST 19 (13-39) U/L ALT 13 (7-52) U/L Alkaline Phosphatase 92 (34-104) U/L Albumin 4.2 (3.4-5.0) gm/dl Diagnostic Findings Head CT 01/01/23 07:[address] OF THE BRAIN; CT ANGIOGRAM OF THE BRAIN; CT ANGIOGRAM OF THE NECK CLINICAL HISTORY: Neurological deficit. Stroke like symptoms. COMPARISON STUDY: No priors. TECHNIQUE: Unenhanced axial CT scan of the brain is performed. Subsequently, following the IV administration of 120 of Optiray 320, CT angiogram of the head and neck was performed from the aortic arch to the vertex. Images are reviewed in the axial, sagittal, and coronal planes. 3-D MIPS images are created and assessed. IV contrast was administered without complication. All measurements were calculated based on NASCET criteria. A dose lowering technique was utilized adhering to the principles of ALARA. CT DOSE: 1319.27 mGy.cm FINDINGS: Brain parenchyma: The brain parenchyma is normal in appearance. There is no hemorrhage, mass effect, or evidence of acute territorial ischemia by CT criteria. There is no evidence of enhancing mass lesion on the angiogram phase images. The ventricles, sulci, and cisterns are normal in configuration. A choroid fissure cyst versus prominent perivascular space is seen on the left. Back-white matter differentiation is preserved. No extra-axial fluid collection is seen. Thoracic aorta: Visualized portions of the thoracic aorta are normal in caliber. The aortic arch demonstrates standard 3-vessel anatomy. Right carotid arterial system: The right common carotid artery is widely patent, as are the right internal and external carotid arteries. Calcified plaque is noted in the carotid bulb. Left carotid arterial system: The left common carotid artery is widely patent, as on the left internal and external carotid arteries. Calcified plaque is noted in the carotid bulb. Vertebral arteries: The vertebral arteries are widely patent bilaterally noting mild left-sided dominance. Subclavian arteries: Widely patent bilaterally. Intracranial vasculature: There is atherosclerotic calcification of the cavernous carotid and vertebral arteries. The internal carotid arteries are patent at the skull base, as are the anterior and middle cerebral arteries bilaterally. The vertebrobasilar system and posterior cerebral arteries are widely patent. The left vertebral artery is dominant. There is no aneurysm, high-grade stenosis, or focal vessel cut off seen throughout the intracranial circulation. Jugular veins: Patent bilaterally. Dural sinuses: Patent. Lung apices: Partially visualized upper lobe lung parenchyma appears clear. Soft tissues: The visualized pharyngeal soft tissues are normal in appearance noting angiographic phase technique. The oropharyngeal airway appears widely patent. The salivary and thyroid glands are normal in appearance. No cervical lymphadenopathy is seen. Skeletal structures: The skeletal structures are osteopenic. The calvarium appears intact. The cervical spine is maintained noting multilevel spondylosis. No lytic or blastic lesion is seen. Orbits: The bony orbits are intact. Orbital contents are normal as visualized noting bilateral ocular lens implants. Sinuses and mastoids: Trace mucosal thickening is noted in the right maxillary antrum. The remaining paranasal sinuses are clear. The mastoid air cells are well pneumatized. IMPRESSION: 1. There is no hemorrhage, mass effect, or evidence of acute territorial ischemia by CT criteria. 2. Unremarkable CT angiogram of the brain. 3. Unremarkable CT angiogram of the neck. ACT 112: Negative or not required by law. Electronically signed by: Otoniel Parnell M.D. 01/01/2023 8:06 AM Head CTA 01/01/23 07:[address] OF THE BRAIN; CT ANGIOGRAM OF THE BRAIN; CT ANGIOGRAM OF THE NECK CLINICAL HISTORY: Neurological deficit. Stroke like symptoms. COMPARISON STUDY: No priors. TECHNIQUE: Unenhanced axial CT scan of the brain is performed. Subsequently, following the IV administration of 120 of Optiray 320, CT angiogram of the head and neck was performed from the aortic arch to the vertex. Images are reviewed in the axial, sagittal, and coronal planes. 3-D MIPS images are created and assessed. IV contrast was administered without complication. All measurements were calculated based on NASCET criteria. A dose lowering technique was utilized adhering to the principles of ALARA. CT DOSE: 1319.27 mGy.cm FINDINGS: Brain parenchyma: The brain parenchyma is normal in appearance. There is no hemorrhage, mass effect, or evidence of acute territorial ischemia by CT criteria. There is no evidence of enhancing mass lesion on the angiogram phase images. The ventricles, sulci, and cisterns are normal in configuration. A choroid fissure cyst versus prominent perivascular space is seen on the left. Back-white matter differentiation is preserved. No extra-axial fluid collection is seen. Thoracic aorta: Visualized portions of the thoracic aorta are normal in caliber. The aortic arch demonstrates standard 3-vessel anatomy. Right carotid arterial system: The right common carotid artery is widely patent, as are the right internal and external carotid arteries. Calcified plaque is noted in the carotid bulb. Left carotid arterial system: The left common carotid artery is widely patent, as on the left internal and external carotid arteries. Calcified plaque is noted in the carotid bulb. Vertebral arteries: The vertebral arteries are widely patent bilaterally noting mild left-sided dominance. Subclavian arteries: Widely patent bilaterally. Intracranial vasculature: There is atherosclerotic calcification of the cavernous carotid and vertebral arteries. The internal carotid arteries are patent at the skull base, as are the anterior and middle cerebral arteries bilaterally. The vertebrobasilar system and posterior cerebral arteries are widely patent. The left vertebral artery is dominant. There is no aneurysm, high-grade stenosis, or focal vessel cut off seen throughout the intracranial circulation. Jugular veins: Patent bilaterally. Dural sinuses: Patent. Lung apices: Partially visualized upper lobe lung parenchyma appears clear. Soft tissues: The visualized pharyngeal soft tissues are normal in appearance noting angiographic phase technique. The oropharyngeal airway appears widely patent. The salivary and thyroid glands are normal in appearance. No cervical lymphadenopathy is seen. Skeletal structures: The skeletal structures are osteopenic. The calvarium appears intact. The cervical spine is maintained noting multilevel spondylosis. No lytic or blastic lesion is seen. Orbits: The bony orbits are intact. Orbital contents are normal as visualized noting bilateral ocular lens implants. Sinuses and mastoids: Trace mucosal thickening is noted in the right maxillary antrum. The remaining paranasal sinuses are clear. The mastoid air cells are well pneumatized. IMPRESSION: 1. There is no hemorrhage, mass effect, or evidence of acute territorial ischemia by CT criteria. 2. Unremarkable CT angiogram of the brain. 3. Unremarkable CT angiogram of the neck. ACT 112: Negative or not required by law. Electronically signed by: Otoniel Parnell M.D. 01/01/2023 8:06 AM Neck CTA 01/01/23 07:[address] OF THE BRAIN; CT ANGIOGRAM OF THE BRAIN; CT ANGIOGRAM OF THE NECK CLINICAL HISTORY: Neurological deficit. Stroke like symptoms. COMPARISON STUDY: No priors. TECHNIQUE: Unenhanced axial CT scan of the brain is performed. Subsequently, following the IV administration of 120 of Optiray 320, CT angiogram of the head and neck was performed from the aortic arch to the vertex. Images are reviewed in the axial, sagittal, and coronal planes. 3-D MIPS images are created and assessed. IV contrast was administered without complication. All measurements were calculated based on NASCET criteria. A dose lowering technique was utilized adhering to the principles of ALARA. CT DOSE: 1319.27 mGy.cm FINDINGS: Brain parenchyma: The brain parenchyma is normal in appearance. There is no hemorrhage, mass effect, or evidence of acute territorial ischemia by CT criteria. There is no evidence of enhancing mass lesion on the angiogram phase images. The ventricles, sulci, and cisterns are normal in configuration. A choroid fissure cyst versus prominent perivascular space is seen on the left. Back-white matter differentiation is preserved. No extra-axial fluid collection is seen. Thoracic aorta: Visualized portions of the thoracic aorta are normal in caliber. The aortic arch demonstrates standard 3-vessel anatomy. Right carotid arterial system: The right common carotid artery is widely patent, as are the right internal and external carotid arteries. Calcified plaque is noted in the carotid bulb. Left carotid arterial system: The left common carotid artery is widely patent, as on the left internal and external carotid arteries. Calcified plaque is noted in the carotid bulb. Vertebral arteries: The vertebral arteries are widely patent bilaterally noting mild left-sided dominance. Subclavian arteries: Widely patent bilaterally. Intracranial vasculature: There is atherosclerotic calcification of the cavernous carotid and vertebral arteries. The internal carotid arteries are patent at the skull base, as are the anterior and middle cerebral arteries bilaterally. The vertebrobasilar system and posterior cerebral arteries are widely patent. The left vertebral artery is dominant. There is no aneurysm, high-grade stenosis, or focal vessel cut off seen throughout the intracranial circulation. Jugular veins: Patent bilaterally. Dural sinuses: Patent. Lung apices: Partially visualized upper lobe lung parenchyma appears clear. Soft tissues: The visualized pharyngeal soft tissues are normal in appearance noting angiographic phase technique. The oropharyngeal airway appears widely patent. The salivary and thyroid glands are normal in appearance. No cervical lymphadenopathy is seen. Skeletal structures: The skeletal structures are osteopenic. The calvarium appears intact. The cervical spine is maintained noting multilevel spondylosis. No lytic or blastic lesion is seen. Orbits: The bony orbits are intact. Orbital contents are normal as visualized noting bilateral ocular lens implants. Sinuses and mastoids: Trace mucosal thickening is noted in the right maxillary antrum. The remaining paranasal sinuses are clear. The mastoid air cells are well pneumatized. IMPRESSION: 1. There is no hemorrhage, mass effect, or evidence of acute territorial ischemia by CT criteria. 2. Unremarkable CT angiogram of the brain. 3. Unremarkable CT angiogram of the neck. ACT 112: Negative or not required by law. Electronically signed by: Otoniel Parnell M.D. 01/01/2023 8:06 AM Code Status & VTE Plan Code Status Patient is a full code as per my discussion with her. VTE Prophylaxis Plan VTE Prophylaxis will be ordered: Yes
--- NOTE | 2023-01-01 10:37 | Communication Note ---
Date of Service: January 01, 2023 62 yo F w/ PMH of MICHAEL on CPAP, Mod persistent asthma, Edu's disease, HLD, prediabetes, HTN, lumbar degenerative disc disease, essential tremor on pro pranolol, depression with anxiety presented 01/01 to ED w/ complaint of Lightheadedness a/w nausea, sweating, blurry vision, generalized weakness after waking up today AM. Also patient notes having different tingling sensation at the back/medial of her b/l legs (below knee) since yesterday evening, she doesn't complain any difficulty breathing/pain w/ deep breaths. Generally she says she has tingling sensation b/l LE (below hips) out and lateral. Will get US Doppler ble. Also she complained having dizziness as soon as she sat up in the bed after waking up, followed by nausea/diarrhea/vomiting/sweating/blurry vision/generalized weakness after going to the bathroom. She denies any flu like illness in the recent past, no s/s of UTI, no headache, no fever or diarrhea before today. Denies any usual food intake outpatient. No such illness in the family, no such illness in herself in the past per pt. Of note, her Propranolol dose was increased from 10 mg bid to 20 mg bid from September of 2022. Pt still continues occasional nausea and had two vomiting in the ED. No further diarrhea while in hospital. No h/o smoking, drink 1 glass of wine 2-3 x /week, no h/o recreational drug use. Plan: CT Head, CTA Head and Neck w/o acute changes, follow up MRI ECHO, tele monitoring, ortho vitals. Consider cardio consult if w/ echo changes. ?? zio patch monitoring on DC. r/o DVT BLE Hold propranolol, gradually increase from lower dose and may need to decrease the dose at DC during this acute phase. likely viral gastro enteritis, LR at 60 ml/hr, pedialyte solution by bedside, fall precaution, stool pcr if able. Nausea control. PT/OT. on Exam: GENERAL: Alert and oriented x3. NAD, on RA. HEENT: No pallor, no icterus. Pupils equal, round and reactive to light. Oral mucosa moist. NECK: No JVD, no neck masses. HEART: S1 and S2 heard. Regular rate and rhythm. No murmur, no gallop. RESPIRATORY SYSTEM: Normal AP diameter. No accessory muscle use. No wheezing, no crackles. ABDOMEN: Soft, bowel sounds present, nontender, no distention. CENTRAL NERVOUS SYSTEM: No facial droop. Speech is clear. Obeys simple commands. Moves extremities. strength equal and normal all four extremities. EXTREMITIES: No edema, no erythema seen. I have seen and examined the patient and have discussed the case with the provider above. I agree with the assessment and plan as stated.
[2023-01-01] MEDS ORDERED: BACLOFEN 10 MG TAB PO PRN (10:41)
[2023-01-01] MEDS ORDERED: PHARMACIST DISCHARGE MED REC CONSULT PRN (10:41)
[2023-01-01 11:06] LABS: Thyroid Stimulating Hormone 5.54 uIu/ml (0.300-4.500)
[2023-01-01 11:40] LABS: T4 Free Thyroxine 0.83 ng/dl (0.61-1.60)
--- NOTE | 2023-01-01 12:48 | Magnetic Resonance Report ---
MRI OF THE BRAIN WITHOUT IV CONTRAST CLINICAL HISTORY: Vertigo. Nausea and vomiting. Dizziness. Blurry vision COMPARISON STUDY: CT of the brain dated 01/01/2023. TECHNIQUE: MRI of the brain was performed utilizing various T1 and T2-weighted sequences in the axial , sagittal, and coronal planes. IV contrast was not administered for this examination. FINDINGS: Brain parenchyma: There is minimal microangiopathic change. There is no hemorrhage or mass effect. Th ere is no restricted diffusion to suggest acute ischemia. Back-white matter differentiation is preser shruti. A choroid fissure cyst versus prominent perivascular space is incidentally noted on the left. No extra-axial fluid collection is seen. The cerebellar tonsils are normal in configuration. Ventricles, sulci, and cisterns: Normal in configuration. Pituitary and sella: Unremarkable. Intracranial vasculature: Normal flow voids are maintained at the skull base. Orbits: The bony orbits are grossly intact. Orbital contents are normal in appearance noting bilatera l ocular lens implants. Sinuses and mastoids: There is trace mucosal thickening within the maxillary antra. The paranasal sin uses and mastoid air cells are otherwise clear. Calvarium: Unremarkable. Cervical cord: Partially visualized cervical spinal cord is normal in morphology and signal intensity . IMPRESSION: No acute intracranial abnormality. ACT 112: Negative or not required by law. Electronically signed by: Otoniel Parnell M.D. 01/01/2023 12:47 PM
[2023-01-01] MEDS: hydrOXYzine HCl 25 MG TAB PO PRN (13:07)
[2023-01-01] MEDS: MECLIZINE HCL 25 MG TAB PO PRN ×2 (13:07→20:43)
--- NOTE | 2023-01-01 15:47 | Ultrasound Report ---
ULTRASOUND BILATERAL LOWER EXTREMITY VENOUS CLINICAL HISTORY: Leg discomfort. Lower extremity sensation change. COMPARISON STUDY: No priors. TECHNIQUE: Real-time, grayscale, and color Doppler sonography of the deep veins of the right and left lower extremity was performed from the inguinal crease to the calf. Compression and augmentation wer e utilized. FINDINGS: There is no sonographic evidence of deep venous thrombosis identified in the right or left lower extremity. The common femoral, superficial femoral, and popliteal veins are patent and normally compressible bilaterally. The greater saphenous vein and the profunda femoris vein at the junction w ith the common femoral vein are clear in both legs. The visualized calf veins are patent bilaterally. IMPRESSION: There is no sonographic evidence of deep venous thrombosis identified in the right or lef t lower extremity. ACT 112: Negative or not required by law. Electronically signed by: Otoniel Parnell M.D. 01/01/2023 3:46 PM
--- NOTE | 2023-01-01 18:16 | Electrocardiogram Report ---
Test Reason : Blood Pressure : / mmHG Vent. Rate : 048 BPM Atrial Rate : 048 BPM P-R Int : 188 ms QRS Dur : 086 ms QT Int : 478 ms P-R-T Axes : 065 018 035 degrees QTc Int : 427 ms Sinus bradycardia Otherwise normal ECG No previous ECGs available Confirmed by Chris Naranjo ([id number]) on 01/01/2023 6:15:51 PM Referred By: REFERRED SELF Confirmed By:Toi Naranjo
[2023-01-01] MEDS: ONDANSETRON INJ 2 MG/ML 2 ML VIAL IV PRN (18:46)
[2023-01-01] MEDS: ACETAMINOPHEN 325 MG TAB PO PRN (20:41)
[2023-01-01] MEDS: NALTREXONE HCL 50 MG TAB PO SCH (20:42)
[2023-01-01] MEDS: CELECOXIB 100 MG CAP PO SCH (20:42)
[2023-01-01] MEDS: FAMOTIDINE 20 MG TAB PO SCH (20:43)
[2023-01-02] MEDS: SODIUM CHLORIDE 0.9% 1000ML 1,000 ML IV SCH (04:02)
[2023-01-02] MEDS: LEVOTHYROXINE SODIUM 75 MCG TABLET PO SCH (05:53)
[2023-01-02] MEDS: ONDANSETRON INJ 2 MG/ML 2 ML VIAL IV PRN (06:00)
[2023-01-02 06:15] LABS: Basophils % (auto) 0.5 %; Eosinophils % (auto) 0.4 %; Hematocrit (blood only) 39.8 % (37.0-47.0); Hemoglobin 13.7 g/dl (12.0-16.0); Lymphocytes % (auto) 28.5 %; Mean Corpuscular Hemoglobin 32.7 pg (25.0-34.0); Mean Corpuscular Hgb Conc 34.4 g/dL (32.0-36.0); Mean Platelet Volume 9.7 fL (9.4-12.4); Neutrophils % (auto) 61.2 %; Platelet Count 206 K/uL (130-400); RDW Coefficient of Variation 14.1 % (11.5-14.5); RDW Standard Deviation 48.6 fL (36.4-46.3); Red Blood Count 4.19 M/uL (4.20-5.40); White Blood Count 9.54 K/ul (4.8-10.8)
[2023-01-02 06:16] LABS: Basophils # (auto) 0.05 K/uL (0-0.2); Eosinophils # (auto) 0.04 K/uL (0-0.50); Immature Granulocytes # (auto) 0.04 K/uL (0.01-0.20); Immature Granulocytes % (auto) 0.4 %; Lymphocytes # (auto) 2.72 K/uL (1.2-3.4); Monocytes # (auto) 0.86 K/uL (0.11-0.59); Neutrophils # (auto) 5.83 K/uL (1.40-6.50)
[2023-01-02 06:31] LABS: BUN Creatinine Ratio 21.6 (10-20); Calcium 8.8 mg/dl (8.6-10.3); Chol HDL Ratio 2.9 (0-5); Est GFR (African American) 99.9 ml/min; Est GFR (Non-African American) 86.2 ml/min; Potassium 3.3 mmol/L (3.5-5.1)
[2023-01-02 07:29] LABS: Estimated Average Glucose 128 mg/dl; Hemoglobin A1C 6.1 % (4.5-5.6)
[2023-01-02] MEDS: CELECOXIB 100 MG CAP PO SCH ×2 (08:14→20:29)
[2023-01-02] MEDS: MECLIZINE HCL 25 MG TAB PO PRN ×3 (08:14→20:28)
[2023-01-02] MEDS: ATORVASTATIN 20 MG TAB PO SCH (08:15)
[2023-01-02] MEDS: VALSARTAN 80 MG TAB PO SCH (08:15)
[2023-01-02] MEDS: FAMOTIDINE 20 MG TAB PO SCH ×2 (08:15→20:29)
[2023-01-02] MEDS: PANTOprazole 40 MG TAB PO SCH (08:15)
[2023-01-02] MEDS: buPROPion XL 300 MG TABCR PO SCH (08:15)
[2023-01-02] MEDS: hydroCHLOROthiazide 25 MG TAB PO SCH (08:15)
[2023-01-02] MEDS: NALTREXONE HCL 50 MG TAB PO SCH ×2 (08:15→20:29)
[2023-01-02] MEDS ORDERED: POTASSIUM CHLORIDE CRTAB 20 MEQ TABCR PO STA (08:22)
--- NOTE | 2023-01-02 12:00 | Hospitalist Progress Note ---
Date of Service January 02, 2023 Assessment & Plan (1) Vertigo: Plan: Admit to telemetry Patient presenting from home for evaluation of dizziness, diaphoresis, nausea, vomiting. Patient also reports associated left-sided tingling. In the ED, head CT, head and neck CTAs unremarkable. Brain MRI - negative for any acute findings Continue supportive care with IVF, nausea control, PRN meclizine. Consider PT eval for Kwaku maneuver ? Due to symptomatic sinus bradycardia --continue to monitor on telemetry, echo Echo -EF 60 to 65%. LV wall motion is normal. Pulse-wave TDI of the anterior and posterior mitral annulus demonstrated normal LV relaxation. No significant valvular pathology. 01/02 patient feels improved overall, however still not quite at her baseline. She says she has history of complex migraine. Reports that she had neurological work-up with physician and does not have any records. She will need to follow-up with neurology as outpatient. Diarrhea in the morning prior to admission, but no stool since then. Awaiting stool PCR. Vomiting yesterday afternoon last time. Now she would like to advance her diet from clear liquids. Will advance diet and continue to closely monitor. If not improving tmrw - consider neurology consult. (2) Sinus bradycardia: Plan: Patient's heart rate consistently in the 40s while in the ED EKG shows sinus bradycardia rate 48 Hold propanolol Echo obtained HR now 54 Consider cardiology consult if not improving. (3) Essential tremor: Plan: Holding propanolol due to bradycardia (4) Hypertension: Plan: BP controlled, continue HCTZ and valsartan (5) Hypothyroidism: Plan: TSH 2.29 03/2022, update TSH Continue levothyroxine as appropriate (6) Morbid obesity: Plan: Follows with GI nutrition/weight management On naltrexone (7) Sleep apnea: Plan: CPAP as per home settings DVT PROPHYLAXIS SCDs for now Admission and Anticipated Discharge Date Admission Date: January 01, 2023 Subjective Pt seen in follow up of vertigo, n/v diarrhea Currently she is sitting up in the chair, in no acute distress. She says that she feels better. She was still vomiting yesterday afternoon. This morning she was able to have some Jell-O and some broth. She had diarrhea yesterday morning prior to admission. But no stool since then. Plan to check stool PCR. Head images negative for any acute findings. Patient says she has history of complex migraine however she was evaluated by physician and does not have records. Review of Systems Review of Systems: All systems reviewed & are unremarkable except as noted in Subjective Physical Exam Physical Exam: Constitutional:L WD/WN, + obese F i n NAD Eyes: PERRL, EOMI, conju nctivae normal, an icteric sclerae ENMT: external ear and n ose normal, oropha rynx normal Respiratory: normal respiratory effort, lungs anna ar to auscultation Cardiovascular:L Rate/Rhythm: regul ar rhythm and + br adycardic Vessels : normal periphera l pulses Extremit ies: no edema Gastrointestinal ( Abdomen): normal bowel sound s, soft, nontender Musculoskeletal: moves extremities Skin: no rashes, warm an d dry Neurologic: PERRL, EOMI, no fa ce palsy, no dysar thria, answers em ropriately, moves extremities Psychiatric: A+Ox3, euthymic af fect Results & Data Results & Data Vital Signs (Past 12 Hours) Vital Signs Temp Pulse Pulse Resp BP Pulse Ox O2 Del Method 01/02/23 11:13 36.5 C 54 L 20 128/81 94 Room Air 01/02/23 08:00 58 L 01/02/23 07:00 58 L 01/02/23 07:15 36.2 C L 56 L 20 122/67 94 Room Air 01/02/23 02:35 57 L 16 96 01/02/23 02:39 36.6 C 57 L 20 152/76 H 96 CPAP FiO2 01/02/23 11:13 01/02/23 08:00 01/02/23 07:00 01/02/23 07:15 01/02/23 02:35 21 01/02/23 02:39 Laboratory Results 01/02/23 01/02/23 01/02/23 Range/Units 11:10 07:13 05:45 WBC (4.8-10.8) K/ul RBC (4.20-5.40) M/uL Hgb (12.0-16.0) g/dl Hct (37.0-47.0) % MCV (80.0-100.0) fL MCH (25.0-34.0) pg MCHC (32.0-36.0) g/dL RDW Std Deviation (36.4-46.3) fL RDW Coeff of Darshan (11.5-14.5) % Plt Count (130-400) K/uL MPV (9.4-12.4) fL Immature Gran % (Auto) % Neut % (Auto) % Lymph % (Auto) % Harlan % (Auto) % Eos % (Auto) % Baso % (Auto) % Neut # (Auto) (1.40-6.50) K/uL Lymph # (Auto) (1.2-3.4) K/uL Harlan # (Auto) (0.11-0.59) K/uL Eos # (Auto) (0-0.50) K/uL Baso # (Auto) (0-0.2) K/uL Immature Gran # (Auto) (0.01-0.20) K/uL Sodium (136-145) mmol/L Potassium (3.5-5.1) mmol/L Chloride (98-107) mmol/L Carbon Dioxide (21-32) mmol/L Anion Gap (3-11) BUN (6-23) mg/dl Creatinine (0.6-1.2) mg/dl Est Cr Clr Drug Dosing ml/min Est GFR ( Amer) ml/min Est GFR (Non-Af Amer) ml/min BUN/Creatinine Ratio (10-20) Glucose (70-99(Fasting)) mg/dl POC Glucose 121 H 109 H (70-99) mg/dl Estimat Average Glucose 128 mg/dl Hemoglobin A1c 6.1 H (4.5-5.6) % Calcium (8.6-10.3) mg/dl Troponin I High Sens (0-14) pg/ml Triglycerides (0-150) mg/dl Cholesterol (0-200) mg/dl LDL Cholesterol, Calc mg/dl VLDL Cholesterol, Calc (0-30) mg/dl HDL Cholesterol mg/dl Cholesterol/HDL Ratio (0-5) 01/02/23 01/02/23 01/01/23 Range/Units 05:45 05:45 20:15 WBC 9.54 (4.8-10.8) K/ul RBC 4.19 L (4.20-5.40) M/uL Hgb 13.7 (12.0-16.0) g/dl Hct 39.8 (37.0-47.0) % MCV 95.0 (80.0-100.0) fL MCH 32.7 (25.0-34.0) pg MCHC 34.4 (32.0-36.0) g/dL RDW Std Deviation 48.6 H (36.4-46.3) fL RDW Coeff of Darshan 14.1 (11.5-14.5) % Plt Count 206 (130-400) K/uL MPV 9.7 (9.4-12.4) fL Immature Gran % (Auto) 0.4 % Neut % (Auto) 61.2 % Lymph % (Auto) 28.5 % Harlan % (Auto) 9.0 % Eos % (Auto) 0.4 % Baso % (Auto) 0.5 % Neut # (Auto) 5.83 (1.40-6.50) K/uL Lymph # (Auto) 2.72 (1.2-3.4) K/uL Harlan # (Auto) 0.86 H (0.11-0.59) K/uL Eos # (Auto) 0.04 (0-0.50) K/uL Baso # (Auto) 0.05 (0-0.2) K/uL Immature Gran # (Auto) 0.04 (0.01-0.20) K/uL Sodium 139 (136-145) mmol/L Potassium 3.3 L (3.5-5.1) mmol/L Chloride 105 (98-107) mmol/L Carbon Dioxide 27 (21-32) mmol/L Anion Gap 7 (3-11) BUN 16 (6-23) mg/dl Creatinine 0.74 (0.6-1.2) mg/dl Est Cr Clr Drug Dosing 99.0 ml/min Est GFR ( Amer) 99.9 ml/min Est GFR (Non-Af Amer) 86.2 ml/min BUN/Creatinine Ratio 21.6 H (10-20) Glucose 101 H (70-99(Fasting)) mg/dl POC Glucose 98 (70-99) mg/dl Estimat Average Glucose mg/dl Hemoglobin A1c (4.5-5.6) % Calcium 8.8 (8.6-10.3) mg/dl Troponin I High Sens (0-14) pg/ml Triglycerides 130 (0-150) mg/dl Cholesterol 152 (0-200) mg/dl LDL Cholesterol, Calc 73 mg/dl VLDL Cholesterol, Calc 26 (0-30) mg/dl HDL Cholesterol 53 mg/dl Cholesterol/HDL Ratio 2.9 (0-5) 01/01/23 01/01/23 01/01/23 Range/Units 19:14 16:42 14:11 WBC (4.8-10.8) K/ul RBC (4.20-5.40) M/uL Hgb (12.0-16.0) g/dl Hct (37.0-47.0) % MCV (80.0-100.0) fL MCH (25.0-34.0) pg MCHC (32.0-36.0) g/dL RDW Std Deviation (36.4-46.3) fL RDW Coeff of Darshan (11.5-14.5) % Plt Count (130-400) K/uL MPV (9.4-12.4) fL Immature Gran % (Auto) % Neut % (Auto) % Lymph % (Auto) % Harlan % (Auto) % Eos % (Auto) % Baso % (Auto) % Neut # (Auto) (1.40-6.50) K/uL Lymph # (Auto) (1.2-3.4) K/uL Harlan # (Auto) (0.11-0.59) K/uL Eos # (Auto) (0-0.50) K/uL Baso # (Auto) (0-0.2) K/uL Immature Gran # (Auto) (0.01-0.20) K/uL Sodium (136-145) mmol/L Potassium (3.5-5.1) mmol/L Chloride (98-107) mmol/L Carbon Dioxide (21-32) mmol/L Anion Gap (3-11) BUN (6-23) mg/dl Creatinine (0.6-1.2) mg/dl Est Cr Clr Drug Dosing ml/min Est GFR ( Amer) ml/min Est GFR (Non-Af Amer) ml/min BUN/Creatinine Ratio (10-20) Glucose (70-99(Fasting)) mg/dl POC Glucose 103 H (70-99) mg/dl Estimat Average Glucose mg/dl Hemoglobin A1c (4.5-5.6) % Calcium (8.6-10.3) mg/dl Troponin I High Sens 4.2 2.7 (0-14) pg/ml Triglycerides (0-150) mg/dl Cholesterol (0-200) mg/dl LDL Cholesterol, Calc mg/dl VLDL Cholesterol, Calc (0-30) mg/dl HDL Cholesterol mg/dl Cholesterol/HDL Ratio (0-5) Medications Administered Current Inpatient Medications Acetaminophen (Acetaminophen 325 Mg Tab) 650 mg PO Q4H PRN PRN Reason: Pain or Fever Stop: 01/31/23 10:40 Last Admin: 01/01/23 20:41 Dose: 650 mg Atorvastatin Calcium ([facility]atin 20 Mg Tab) [facility] [place] Stop: 02/01/23 08:59 Last Admin: 01/02/23 08:15 Dose: 20 mg Baclofen (Baclofen 10 Mg Tab) 10 mg PO HS PRN PRN Reason: Muscle Spasm Stop: 01/31/23 10:40 Last Admin: 01/01/23 20:43 Dose: 10 mg Bupropion HCl (Bupropion Xl 300 Mg Tabcr) 300 mg PO DAILY [facility] Stop: 02/01/23 08:59 Last Admin: 01/02/23 08:15 Dose: 300 mg Celecoxib (Celecoxib 100 Mg Cap) 100 mg PO BID [facility] Stop: 01/31/23 20:59 Last Admin: 01/02/23 08:14 Dose: 100 mg Famotidine (Famotidine 20 Mg Tab) 20 mg PO BID [facility] Stop: 01/31/23 20:59 Last Admin: 01/02/23 08:15 Dose: 20 mg Hydrochlorothiazide (Hydrochlorothiazide 25 Mg Tab) 25 mg PO QAM [facility] Stop: 02/01/23 08:59 Last Admin: 01/02/23 08:15 Dose: 25 mg Hydroxyzine HCl (Hydroxyzine Hcl 25 Mg Tab) 25 mg PO QID PRN PRN Reason: Anxiety Stop: 01/31/23 10:40 Last Admin: 01/01/23 13:07 Dose: 25 mg Levothyroxine Sodium (Levothyroxine Sodium 75 Mcg Tablet) 75 mcg PO DAILYBB [facility] Stop: 02/01/23 06:29 Last Admin: 01/02/23 05:53 Dose: 75 mcg Meclizine HCl (Meclizine Hcl 25 Mg Tab) 25 mg PO TID PRN PRN Reason: Vertigo Stop: 01/31/23 10:40 Last Admin: 01/02/23 08:14 Dose: 25 mg Miscellaneous Information (Pharmacist Discharge Med Rec Consult) 1 each N/A UD PRN PRN Reason: Consult Stop: 01/31/23 10:40 Naltrexone HCl (Naltrexone Hcl 50 Mg Tab) 25 mg PO BID [facility] Stop: 01/31/23 20:59 Last Admin: 01/02/23 08:15 Dose: 25 mg Ondansetron HCl (Ondansetron Inj 2 Mg/Ml 2 Ml Vial) 4 mg IV Q6H PRN PRN Reason: Nausea Stop: 01/31/23 10:40 Last Admin: 01/02/23 06:00 Dose: 4 mg Pantoprazole Sodium (Pantoprazole 40 Mg Tab) 40 mg PO QAM [facility] Stop: 02/01/23 08:59 Last Admin: 01/02/23 08:15 Dose: 40 mg Valsartan (Valsartan 80 Mg Tab) 80 mg PO DAILY [facility] Stop: 02/01/23 08:59 Last Admin: 01/02/23 08:15 Dose: 80 mg
--- NOTE | 2023-01-02 17:54 | Electrocardiogram Report ---
Test Reason : Blood Pressure : / mmHG Vent. Rate : 053 BPM Atrial Rate : 053 BPM P-R Int : 176 ms QRS Dur : 084 ms QT Int : 480 ms P-R-T Axes : 060 032 032 degrees QTc Int : 450 ms Sinus bradycardia Otherwise normal ECG When compared with ECG of 01-JAN-2023 07:32, No significant change was found Confirmed by Chris Naranjo ([id number]) on 01/02/2023 5:54:45 PM Referred By: REFERRED SELF Confirmed By:Toi Naranjo
[2023-01-02] MEDS: ACETAMINOPHEN 325 MG TAB PO PRN (20:28)
[2023-01-02] MEDS: hydrOXYzine HCl 25 MG TAB PO PRN (21:31)
[2023-01-03] MEDS: LEVOTHYROXINE SODIUM 75 MCG TABLET PO SCH (05:45)
[2023-01-03] MEDS: hydrOXYzine HCl 25 MG TAB PO PRN (05:45)
[2023-01-03] MEDS: MECLIZINE HCL 25 MG TAB PO PRN ×2 (05:45→20:28)
[2023-01-03 06:47] LABS: Basophils # (auto) 0.05 K/uL (0-0.2); Basophils % (auto) 0.7 %; Eosinophils # (auto) 0.04 K/uL (0-0.50); Eosinophils % (auto) 0.5 %; Hematocrit (blood only) 37.9 % (37.0-47.0); Hemoglobin 13.1 g/dl (12.0-16.0); Immature Granulocytes # (auto) 0.02 K/uL (0.01-0.20); Immature Granulocytes % (auto) 0.3 %; Lymphocytes # (auto) 2.52 K/uL (1.2-3.4); Lymphocytes % (auto) 34.4 %; Mean Corpuscular Hemoglobin 32.7 pg (25.0-34.0); Mean Corpuscular Hgb Conc 34.6 g/dL (32.0-36.0); Mean Corpuscular Volume 94.5 fL (80.0-100.0); Mean Platelet Volume 9.5 fL (9.4-12.4); Monocytes # (auto) 0.67 K/uL (0.11-0.59); Monocytes % (auto) 9.1 %; Neutrophils # (auto) 4.03 K/uL (1.40-6.50); Platelet Count 192 K/uL (130-400); RDW Coefficient of Variation 14.1 % (11.5-14.5); RDW Standard Deviation 49.3 fL (36.4-46.3); Red Blood Count 4.01 M/uL (4.20-5.40); White Blood Count 7.33 K/ul (4.8-10.8)
[2023-01-03 07:17] LABS: BUN Creatinine Ratio 22.4 (10-20); Calcium 8.7 mg/dl (8.6-10.3); Creatinine Clr Calc Pharmacy 85.1 ml/min; Est GFR (African American) 84.5 ml/min; Est GFR (Non-African American) 72.9 ml/min; Phosphorus 3.7 mg/dl (2.5-4.9); Potassium 3.6 mmol/L (3.5-5.1)
[2023-01-03] MEDS: hydroCHLOROthiazide 25 MG TAB PO SCH (08:59)
[2023-01-03] MEDS: ATORVASTATIN 20 MG TAB PO SCH (08:59)
[2023-01-03] MEDS: buPROPion XL 300 MG TABCR PO SCH (08:59)
[2023-01-03] MEDS: FAMOTIDINE 20 MG TAB PO SCH ×2 (08:59→20:28)
[2023-01-03] MEDS: VALSARTAN 80 MG TAB PO SCH (08:59)
[2023-01-03] MEDS: NALTREXONE HCL 50 MG TAB PO SCH ×2 (09:00→20:27)
[2023-01-03] MEDS: PANTOprazole 40 MG TAB PO SCH (09:00)
[2023-01-03] MEDS: CELECOXIB 100 MG CAP PO SCH ×2 (09:00→20:26)
--- NOTE | 2023-01-03 11:00 | Neurology Consultation ---
Date of Consultation January 03, 2023 Assessment & Plan (1) Vertigo: Patient with BPPV with persistent symptoms, somewhat improved from admission. No evidence of central cause on MRI, exam consistent with R vestibular dysfunction. Continue meclizine and therapy evals. Can try Valium for persistent symptoms. Please contact us with any further questions. Telehealth Consultation Telehealth Information Telehealth Information: I performed this visit using a real-time telehealth connection between my location and the patients location ([facility]). After connecting through interactive tele-video, patient was identified by name and date of and/or wristband check.Patient (or authorized healthcare credit representative) was informed that this was a telemedicine visit and it was being conducted confidentially over secure lines. My office door was closed and no one else was present in the room with me.Patient (or authorized healthcare credit representative) provided consent to proceed with the visit, expressed an understanding of privacy and security of the telemedicine visit, and gave permission to have a hospital credit representative in the room in order to assist with the visit and to conduct portions of the visit, as needed. I informed the patient (or authorized healthcare credit representative) that I reviewed their record and presented the opportunity for them to ask any questions regarding the visit today. The patient agreed to participate. History of Present Illness Reason for Consultation: Vertigo Requesting Physician: Dr. Howell Attending Physician: Jaren Howell MD History of Present Illness Elsa Santoyo is a 62 yo F presenting with vertigo that began abruptly when she woke up two days ago. She has never experienced room spinning this severe in the past, no history of vertigo. She describes difficulty with her vision and being able to focus on objects and had intractable vomiting when the symptoms began. Since admission she has improved but has not returned to baseline and has not improved since yesterday. She continues to feel that the room is spinning and specifically looking to the left causes her significant symptoms. She denies any headache with this episode though reports in 2010 she was told she had two complex migraines by a neurologist. No history of headache or migraine since then. Yesterday she had canalith repositioning performed by PT but did not get any relief. Otherwise no change in hearing, weakness, numbness. Allergies Allergy/AdvReac Type Severity Reaction Status Date / Time demeclocycline Allergy Intermediate Hives Verified 01/04/22 08:02 [From Kamille] Home Medications Medication Instructions Recorded Confirmed Type atorvastatin 20 mg tablet (Lipitor) 20 mg PO QAM 10/11/20 01/01/23 History hydrochlorothiazide 25 mg tablet 25 mg PO QAM 10/11/20 01/01/23 History levothyroxine 75 mcg tablet 75 mcg PO QAM 10/11/20 01/01/23 History famotidine 20 mg tablet 20 mg PO BID 12/28/21 01/01/23 History pantoprazole 40 mg tablet,delayed 40 mg PO QAM 12/28/21 01/01/23 History release baclofen 10 mg tablet 10 mg PO HS PRN Muscle Spasm 01/01/23 01/01/23 History bupropion HCl 300 mg 24 hr tablet, 300 mg PO DAILY 01/01/23 01/01/23 History extended release celecoxib 100 mg capsule 100 mg PO BID 01/01/23 01/01/23 History hydroxyzine HCl 25 mg tablet 25 mg PO QID PRN Anxiety 01/01/23 01/01/23 History naltrexone 50 mg tablet 25 mg PO BID 01/01/23 01/01/23 History propranolol 20 mg tablet 20 mg PO BID 01/01/23 01/01/23 History valsartan 80 mg tablet 80 mg PO DAILY 01/01/23 01/01/23 History Patient History Medical History Anxiety and depression Arthritis Asthma HAS NO RESCUE INHALER Degenerative disc disease Essential tremor Gastritis ? REASON FOR PROCEDURE History of colon polyps History of COVID-19 05/2021>FEVER/CHEST CONGESTION *RESOLVED Hyperlipidemia Hypertension Hypothyroidism Migraine Morbid obesity Sleep apnea CPAP Spinal stenosis Surgical History Family history of reaction to anesthesia FATHER>SLOW TO WAKE UP H/O lumbar discectomy H/O sinus surgery History of appendectomy History of cataract surgery RT/LEFT History of colonoscopy History of esophagogastroduodenoscopy (EGD) History of hysterectomy History of partial knee replacement RT History of repair of rotator cuff RT/LEFT History of tonsillectomy and adenoidectomy Social History Smoking Status: Never smoker Second Hand Exposure: No; Do You Dip or Chew Tobacco: No; Tobacco Cessation Education Requested by Patient: No Hx Alcohol Use: No Hx Substance Use: No Preferred Language: Israeli Communication Ability: Effective Electrical Lineworker Required: No Beliefs That Will Affect Care: None Current Living Situation: Spouse Other Information That Helps Us Care for You: No Feels Safe at Home: Yes Safety Concerns: Feels Safe At This Time Assistive Devices: CPAP Review of Systems +vertigo Physical Exam Neurological Examination: Mental Status: Awake and alert. Fluent. Comprehension intact. Affect appropriate. Cranial Nerves: II: pupils 3/3 to 2/2 III/IV/: Versions intact with right beating nystagmus VII: Facial expression symmetric Motor: Strength was symmetric and antigravity throughout. There were no abnormal movements. Coordination: Movements were non-ataxic Results & Data Vital Signs (Past 12 Hours) Vital Signs Temp Pulse Pulse Resp BP Pulse Ox O2 Del Method 01/03/23 08:00 49 L 01/03/23 07:52 36.6 C 54 L 18 150/74 H 95 Room Air 01/03/23 03:17 36.8 C 51 L 18 132/82 97 CPAP 01/03/23 00:00 57 L 01/02/23 23:08 36.4 C L 56 L 20 153/75 H 96 CPAP Laboratory Results Abnormal lab results 01/02/23 01/02/23 01/03/23 Range/Units 11:10 16:11 06:01 RBC 4.01 L (4.20-5.40) M/uL RDW Std Deviation 49.3 H (36.4-46.3) fL Warrick # (Auto) 0.67 H (0.11-0.59) K/uL BUN/Creatinine Ratio (10-20) Glucose (70-99(Fasting)) mg/dl POC Glucose 121 H 100 H (70-99) mg/dl 01/03/23 Range/Units 06:01 RBC (4.20-5.40) M/uL RDW Std Deviation (36.4-46.3) fL Warrick # (Auto) (0.11-0.59) K/uL BUN/Creatinine Ratio 22.4 H (10-20) Glucose 103 H (70-99(Fasting)) mg/dl POC Glucose (70-99) mg/dl Diagnostic Findings MRI brain unremarkable
[2023-01-03 11:11] LABS: Lyme Ab IgG w/WB Rflx Negative (Negative); Lyme Ab IgM w/WB Rflx Negative (Negative)
[2023-01-03] MEDS ORDERED: diazePAM 5 MG TABLET PO PRN (12:15)
--- NOTE | 2023-01-03 14:17 | Electrocardiogram Report ---
Test Reason : Blood Pressure : / mmHG Vent. Rate : 052 BPM Atrial Rate : 052 BPM P-R Int : 174 ms QRS Dur : 086 ms QT Int : 472 ms P-R-T Axes : 051 037 035 degrees QTc Int : 438 ms Sinus bradycardia Otherwise normal ECG When compared with ECG of 02-JAN-2023 05:30, No significant change was found Confirmed by Chris Naranjo ([id number]) on 01/03/2023 2:17:16 PM Referred By: REFERRED SELF Confirmed By:Toi Naranjo
--- NOTE | 2023-01-03 15:55 | Hospitalist Progress Note ---
Date of Service January 03, 2023 Assessment & Plan (1) Vertigo: Plan: per Dr. Goodman's notes with addendum: Patient presenting from home for evaluation of dizziness, diaphoresis, nausea, vomiting. Patient also reports associated left-sided tingling. In the ED, head CT, head and neck CTAs unremarkable. Brain MRI - negative for any acute findings 01/03 Status post Kwaku maneuver by PT service Still is having dizziness, blurring of vision, unsteadiness with ambulation Neurology service consulted [place] symptoms still likely secondary to BPPV Recommend trial of Valium p.o. for symptoms Also on meclizine as needed Monitor (2) Sinus bradycardia: Plan: Patient's heart rate consistently in the 40s while in the ED Propranolol held Echo -EF 60 to 65%. LV wall motion is normal. Pulse-wave TDI of the anterior and posterior mitral annulus demonstrated normal LV relaxation. No significant valvular pathology. TSH mildly elevated, free T4 normal [place], anaplasmosis screen: Pending Heart rate seems to be improving currently in the mid 50s Continue to monitor closely (3) Essential tremor: Plan: Holding propanolol due to bradycardia (4) Hypertension: Plan: BP controlled, continue HCTZ and valsartan (5) Hypothyroidism: Plan: TSH 2.29 03/2022, update TSH Continue levothyroxine (6) Morbid obesity: Plan: Follows with GI nutrition/weight management On naltrexone (7) Sleep apnea: Plan: CPAP as per home settings DVT PROPHYLAXIS SCDs for now Disposition Discharge to home when medically stable plan of care discussed with patient in detail and at length all questions answered She is understanding, agreeable, comfortable with the plan of care Admission and Anticipated Discharge Date Admission Date: January 03, 2023 Subjective Follow-up for dizziness, etc. Seen resting in bedside chair, not in distress, comfortable States she still feels off today Still having some dizziness, blurring of vision, associated with mild left-sided headache, no focal weakness or numbness Denies presyncope, syncopal episodes no chest pain, dyspnea, palpitations Feels unsteady when ambulating around the room today No other new symptoms Review of Systems Review of Systems: all noted and negative except for above Physical Exam Physical Exam: General- oriented x 3, not in distress, speaks in sentences with no effort or accessory muscle use Head- atraumatic Eyes- PERRL, EOMI, anicteric ENT- oropharynx clear Neck- supple, no JVD, no adenopathy, no thyromegaly; carotids +2/2, no bruits appreciated Lungs- clear to auscultation bilaterally, no rales/wheezes Heart- normal rate, regular rhythm; no murmur, no gallop, no rub appreciated Abdomen- normal bowel sounds, nondistended, soft, nontender, no masses or hepatosplenomegaly Extremities- no pretibial edema, no calf tenderness; peripheral pulses intact Neuro- alert, oriented x 3; CN 2-12 grossly intact; motor 5/5 bilaterally;sensation 100% on all extremities; no other gross focal neurologic deficits Skin- warm & dry Results & Data Results & Data Vital Signs (Past 12 Hours) Vital Signs Temp Pulse Pulse Resp BP Pulse Ox Pulse Ox 01/03/23 15:42 55 L 145/65 H 01/03/23 15:25 37.0 C 56 L 18 160/83 H 96 01/03/23 10:00 97 01/03/23 11:42 36.7 C 57 L 18 148/77 H 95 01/03/23 08:00 49 L 01/03/23 07:52 36.6 C 54 L 18 150/74 H 95 O2 Del Method O2 Del Method 01/03/23 15:42 01/03/23 15:25 Room Air 01/03/23 10:00 Room Air 01/03/23 11:42 Room Air 01/03/23 08:00 01/03/23 07:52 Room Air all noted and reviewed including below
[2023-01-03] MEDS: ACETAMINOPHEN 325 MG TAB PO PRN (20:26)
[2023-01-03] MEDS ORDERED: diazePAM 5 MG TABLET PO ONE (20:45)
[2023-01-04] MEDS: LEVOTHYROXINE SODIUM 75 MCG TABLET PO SCH (06:15)
[2023-01-04 06:55] LABS: Basophils # (auto) 0.03 K/uL (0-0.2); Basophils % (auto) 0.4 %; Eosinophils # (auto) 0.07 K/uL (0-0.50); Eosinophils % (auto) 0.9 %; Hematocrit (blood only) 40.9 % (37.0-47.0); Hemoglobin 14.7 g/dl (12.0-16.0); Immature Granulocytes # (auto) 0.04 K/uL (0.01-0.20); Immature Granulocytes % (auto) 0.5 %; Lymphocytes # (auto) 2.49 K/uL (1.2-3.4); Lymphocytes % (auto) 31.6 %; Mean Corpuscular Hemoglobin 34.7 pg (25.0-34.0); Mean Corpuscular Hgb Conc 35.9 g/dL (32.0-36.0); Mean Corpuscular Volume 96.5 fL (80.0-100.0); Mean Platelet Volume 9.5 fL (9.4-12.4); Monocytes # (auto) 0.64 K/uL (0.11-0.59); Monocytes % (auto) 8.1 %; Neutrophils # (auto) 4.61 K/uL (1.40-6.50); Neutrophils % (auto) 58.5 %; Platelet Count 202 K/uL (130-400); RDW Coefficient of Variation 14.2 % (11.5-14.5); Red Blood Count 4.24 M/uL (4.20-5.40); White Blood Count 7.88 K/ul (4.8-10.8)
[2023-01-04 07:10] LABS: BUN Creatinine Ratio 26.5 (10-20); Creatinine Clr Calc Pharmacy 86.8 ml/min; Potassium 3.7 mmol/L (3.5-5.1)
[2023-01-04] MEDS: FAMOTIDINE 20 MG TAB PO SCH ×2 (08:43→20:26)
[2023-01-04] MEDS: NALTREXONE HCL 50 MG TAB PO SCH ×2 (08:43→20:25)
[2023-01-04] MEDS: CELECOXIB 100 MG CAP PO SCH ×2 (08:43→20:24)
[2023-01-04] MEDS: MECLIZINE HCL 25 MG TAB PO PRN (08:44)
[2023-01-04] MEDS: hydroCHLOROthiazide 25 MG TAB PO SCH (08:44)
[2023-01-04] MEDS: VALSARTAN 80 MG TAB PO SCH (08:44)
[2023-01-04] MEDS: hydrOXYzine HCl 25 MG TAB PO PRN (08:44)
[2023-01-04] MEDS: buPROPion XL 300 MG TABCR PO SCH (08:44)
[2023-01-04] MEDS: PANTOprazole 40 MG TAB PO SCH (08:44)
[2023-01-04] MEDS: ATORVASTATIN 20 MG TAB PO SCH (08:44)
[2023-01-04] MEDS: ONDANSETRON INJ 2 MG/ML 2 ML VIAL IV PRN (08:51)
[2023-01-04] MEDS: diazePAM 5 MG TABLET PO PRN ×2 (08:51→20:23)
--- NOTE | 2023-01-04 13:02 | Hospitalist Progress Note ---
Date of Service January 04, 2023 Assessment & Plan (1) Vertigo: Plan: per Dr. Goodman's notes with addendum: Patient presenting from home for evaluation of dizziness, diaphoresis, nausea, vomiting. Patient also reports associated left-sided tingling. In the ED, head CT, head and neck CTAs unremarkable. Brain MRI - negative for any acute findings 01/03 Status post Kwaku maneuver by PT service Still is having dizziness, blurring of vision, unsteadiness with ambulation Neurology service consulted [place] symptoms still likely secondary to BPPV Recommend trial of Valium p.o. for symptoms Also on meclizine as needed Monitor 01/04 Still having similar symptoms from yesterday Discussed with neurologist Dr. Sifuentes Recommend trial of prednisone taper for possible vestibular neuritis/dermatitis He also reevaluated the patient via telemedicine Discussed with patient, agreeable with trial of prednisone taper Continue to monitor closely (2) Sinus bradycardia: Plan: Patient's heart rate consistently in the 40s while in the ED Propranolol held Echo -EF 60 to 65%. LV wall motion is normal. Pulse-wave TDI of the anterior and posterior mitral annulus demonstrated normal LV relaxation. No significant valvular pathology. TSH mildly elevated, free T4 normal [place], anaplasmosis screen: Pending Heart rate seems to be improving currently in the mid 50s to low 60s Continue to monitor closely (3) Essential tremor: Plan: Holding propanolol due to bradycardia (4) Hypertension: Plan: BP controlled, continue HCTZ and valsartan (5) Hypothyroidism: Plan: TSH 2.29 03/2022, update TSH Continue levothyroxine (6) Morbid obesity: Plan: Follows with GI nutrition/weight management On naltrexone (7) Sleep apnea: Plan: CPAP as per home settings DVT PROPHYLAXIS SCDs for now Disposition Discharge to home when medically stable plan of care discussed with patient in detail and at length all questions answered She is understanding, agreeable, comfortable with the plan of care Admission and Anticipated Discharge Date Admission Date: January 03, 2023 Subjective Follow-up for dizziness, etc. Seen sitting up in bedside chair, not in distress States he feels about the same as yesterday Still having some dizziness with ambulation Still having blurred vision No other new symptoms Discussed with Dr. Sifuentes, recommend trial of prednisone for possible vestibular neuritis/labyrinthitis Patient expressed frustration regarding neurology evaluation Requested follow-up evaluation by Dr. Kolby Sanchezd Dr. Sifuentes Review of Systems Review of Systems: all noted and negative except for above Physical Exam Physical Exam: General- oriented x 3, not in distress, speaks in sentences with no effort or accessory muscle use Eyes- anicteric Neck- no JVD Lungs- clear breath sounds bilaterally Heart- normal rate, regular rhythm; no murmurs Abdomen- normal bowel sounds, nondistended, soft, nontender Extremities- no pretibial edema, no calf tenderness Neuro- alert, oriented x 3; no new gross focal neurologic deficits Skin- warm & dry Results & Data Results & Data Vital Signs (Past 12 Hours) Vital Signs Temp Pulse Pulse Resp BP Pulse Ox O2 Del Method 01/04/23 08:00 57 L 01/04/23 07:00 36.8 C 58 L 20 148/80 H 97 Room Air 01/04/23 03:22 36.6 C 56 L 17 132/79 96 CPAP all noted and reviewed including below
--- NOTE | 2023-01-04 15:30 | Neurology Progress Note ---
Date of Service January 04, 2023 Assessment & Plan (1) Vertigo: Patient continues to have vertigo secondary to vestibular dysfunction. Vertigo is a symptom, this is not central vertigo as the MRI was negative and her CTA was negative. Possibilities for her vestibular dysfunction include BPPV, vestibular neuritis (which is viral) and vestibular migraine which is unlikely as she does not have a headache. Regardless of the etiology the treatment remains symptomatic. There are no other symptomatic medications that will be helpful here. I am unable to explain her visual complains otherwise and would encourage her to see ophthalmology as an outpatient. She would also benefit from a balance center referral. Please let us know if there are any further questions. Subjective Telehealth Information I performed this visit using a real-time telehealth connection between my location and the patients location ([facility]). After connecting through interactive tele-video, patient was identified by name and date of and/or wristband check.Patient (or authorized healthcare risk control field representative) was informed that this was a telemedicine visit and it was being conducted confidentially over secure lines. My office door was closed and no one else was present in the room with me.Patient (or authorized healthcare risk control field representative) provided consent to proceed with the visit, expressed an understanding of privacy and security of the telemedicine visit, and gave permission to have a hospital risk control field representative in the room in order to assist with the visit and to conduct portions of the visit, as needed. I informed the p atient (or authorized healthcare risk control field representative) that I reviewed their record and presented the opportunity for them to ask any questions regarding the visit today. The patient agreed to participate. Patient continues to be vertiginous, specifically triggered by movement. Continues to have photophobia and blurry vision. Expressed frustration with her lack of improvement despite addition of Valium and meclizine. Otherwise no new symptoms. Review of Systems +vertigo Physical Exam In bed, awake and alert, speech clear, no evidence of nystagmus on primary gaze. Results & Data Vital Signs (Past 12 Hours) Vital Signs Temp Pulse Pulse Resp BP Pulse Ox O2 Del Method 01/04/23 08:00 57 L 01/04/23 07:00 36.8 C 58 L 20 148/80 H 97 Room Air
[2023-01-04] MEDS: predniSONE 20 MG TAB PO SCH (17:22)
[2023-01-04] MEDS: ACETAMINOPHEN 325 MG TAB PO PRN (20:23)
[2023-01-05] MEDS: LEVOTHYROXINE SODIUM 75 MCG TABLET PO SCH (04:36)
[2023-01-05] MEDS: CELECOXIB 100 MG CAP PO SCH ×2 (08:40→20:51)
[2023-01-05] MEDS: MECLIZINE HCL 25 MG TAB PO PRN ×2 (08:40→16:57)
[2023-01-05] MEDS: FAMOTIDINE 20 MG TAB PO SCH ×2 (08:40→20:52)
[2023-01-05] MEDS: NALTREXONE HCL 50 MG TAB PO SCH ×2 (08:40→20:50)
[2023-01-05] MEDS: ATORVASTATIN 20 MG TAB PO SCH (08:41)
[2023-01-05] MEDS: hydroCHLOROthiazide 25 MG TAB PO SCH (08:41)
[2023-01-05] MEDS: buPROPion XL 300 MG TABCR PO SCH (08:41)
[2023-01-05] MEDS: VALSARTAN 80 MG TAB PO SCH (08:41)
[2023-01-05] MEDS: PANTOprazole 40 MG TAB PO SCH (08:41)
[2023-01-05] MEDS: predniSONE 20 MG TAB PO SCH (08:41)
--- NOTE | 2023-01-05 10:02 | Hospitalist Progress Note ---
Date of Service January 05, 2023 Assessment & Plan (1) Vertigo: Plan: per Dr. Goodman's notes with addendum: Patient presenting from home for evaluation of dizziness, diaphoresis, nausea, vomiting. Patient also reports associated left-sided tingling. In the ED, head CT, head and neck CTAs unremarkable. Brain MRI - negative for any acute findings 01/03 Status post Kwaku maneuver by PT service Still is having dizziness, blurring of vision, unsteadiness with ambulation Neurology service consulted [place] symptoms still likely secondary to BPPV Recommend trial of Valium p.o. for symptoms Also on meclizine as needed Monitor 01/04 Still having similar symptoms from yesterday Discussed with neurologist Dr. Sifuentes Recommend trial of prednisone taper for possible vestibular neuritis/dermatitis He also reevaluated the patient via telemedicine Discussed with patient, agreeable with trial of prednisone taper Continue to monitor closely 01/05 symptoms seems to be improved to some degree today continue Prednisone 60mg daily PT/OT (2) Sinus bradycardia: Plan: Patient's heart rate consistently in the 40s while in the ED Propranolol held Echo -EF 60 to 65%. LV wall motion is normal. Pulse-wave TDI of the anterior and posterior mitral annulus demonstrated normal LV relaxation. No significant valvular pathology. TSH mildly elevated, free T4 normal [place], anaplasmosis screen: Pending Heart rate continues to improve- 70s today monitor (3) Essential tremor: Plan: Holding propanolol due to bradycardia (4) Hypertension: Plan: on Prednisone monitor for BP elevation continue HCTZ and valsartan (5) Hypothyroidism: Plan: TSH 2.29 03/2022, update TSH Continue levothyroxine (6) Morbid obesity: Plan: Follows with GI nutrition/weight management On naltrexone (7) Sleep apnea: Plan: CPAP as per home settings DVT PROPHYLAXIS SCDs for now Disposition Discharge to home when medically stable plan of care discussed with patient in detail and at length all questions answered She is understanding, agreeable, comfortable with the plan of care Admission and Anticipated Discharge Date Admission Date: January 03, 2023 Subjective ff up for vertigo, etc seen resting in bed, comfortable states she is able to read top header of the care team board in her room seems to be able to focus more when looking at the TV, clock still has some dizziness with head movement, but spinning sensation is slower no nausea no other symptoms Review of Systems Review of Systems: all noted and negative except for above Physical Exam Physical Exam: General- oriented x 3, not in distress, speaks in sentences with no effort or accessory muscle use Eyes- anicteric Neck- no JVD Lungs- clear breath sounds bilaterally Heart- normal rate, regular rhythm; no murmurs Abdomen- normal bowel sounds, nondistended, soft, nontender Extremities- no pretibial edema, no calf tenderness Neuro- alert, oriented x 3; no new gross focal neurologic deficits Skin- warm & dry Results & Data Results & Data Vital Signs (Past 12 Hours) Vital Signs Temp Pulse Pulse Resp BP Pulse Ox O2 Del Method 01/05/23 08:00 72 01/05/23 07:41 36.8 C 81 18 163/80 H 93 Room Air 01/05/23 02:52 37 C 75 18 128/79 96 Nasal CPAP 01/05/23 00:04 66 01/04/23 22:39 37 C 67 18 146/74 H 96 Room Air all noted and reviewed including below
[2023-01-05] MEDS: diazePAM 5 MG TABLET PO PRN (20:55)
[2023-01-06] MEDS: LEVOTHYROXINE SODIUM 75 MCG TABLET PO SCH (05:58)
[2023-01-06] MEDS: PANTOprazole 40 MG TAB PO SCH (08:17)
[2023-01-06] MEDS: VALSARTAN 80 MG TAB PO SCH (08:17)
[2023-01-06] MEDS: NALTREXONE HCL 50 MG TAB PO SCH (08:17)
[2023-01-06] MEDS: FAMOTIDINE 20 MG TAB PO SCH (08:17)
[2023-01-06] MEDS: CELECOXIB 100 MG CAP PO SCH (08:18)
[2023-01-06] MEDS: ATORVASTATIN 20 MG TAB PO SCH (08:18)
[2023-01-06] MEDS: hydroCHLOROthiazide 25 MG TAB PO SCH (08:18)
[2023-01-06] MEDS: predniSONE 20 MG TAB PO SCH (08:18)
[2023-01-06] MEDS: buPROPion XL 300 MG TABCR PO SCH (08:18)
--- NOTE | 2023-01-06 09:36 | Hospitalist Progress Note ---
Date of Service January 06, 2023 Assessment & Plan (1) Vertigo: Plan: (1) Benign paroxysmal positional vertigo, possible vestibular neuritis/labyrinthitis Patient presenting from home for evaluation of dizziness, diaphoresis, nausea, vomiting. Patient also reports associated left-sided tingling. In the ED, head CT, head and neck CTAs unremarkable. Brain MRI - negative for any acute findings Status post Kwaku maneuver by PT service Neurology service consulted [place] symptoms still likely secondary to BPPV, vestibular neuritis, possible labyrinthitis Recommend trial of Valium p.o. for symptoms Also on meclizine as needed Patient had persistence of symptoms Neurology service evaluated the patient Recommend prednisone taper Symptoms gradually improving Continue 10 days prednisone taper at home as follows: Prednisone 60 mg daily x2 days, 40 mg x 1 day, 40 mg x 1 day, 20 mg x 1 day, 10 mg x 1 day, 5 mg x 1 day then stop Continue outpatient PT and OT for evaluation and treatment of vertigo Follow-up with PCP in 1 week (2) Sinus bradycardia: Plan: Patient's heart rate consistently in the 40s while in the ED Propranolol held Echo -EF 60 to 65%. LV wall motion is normal. Pulse-wave TDI of the anterior and posterior mitral annulus demonstrated normal LV relaxation. No significant valvular pathology. TSH mildly elevated, free T4 normal [place], anaplasmosis screen: Pending Heart rate improved to the 70s Discontinue propranolol Monitor as outpatient (3) Essential tremor: Plan: Held propanolol due to bradycardia (4) Hypertension: Plan: Stable continue HCTZ and valsartan (5) Hypothyroidism: Plan: TSH 5.5 Continue levothyroxine (6) Morbid obesity: Plan: Follows with GI nutrition/weight management On naltrexone (7) Sleep apnea: Plan: CPAP as per home settings DVT PROPHYLAXIS SCDs for now Disposition Discharge to home Follow-up with PCP in 1 week Follow-up with neurology in 3 to 4 weeks plan of care discussed with patient in detail and at length all questions answered She is understanding, agreeable, comfortable with the plan of care Admission and Anticipated Discharge Date Admission Date: January 03, 2023 Subjective Follow-up for vertigo, etc. Seen sitting up in bedside chair, comfortable States she continues to feel improved gradually Denies dizziness, less visual disturbance No other symptoms States she is ready for discharge today Review of Systems Review of Systems: all noted and negative except for above Physical Exam Physical Exam: General- oriented x 3, not in distress, speaks in sentences with no effort or accessory muscle use Eyes- anicteric Neck- no JVD Lungs- clear breath sounds bilaterally, no rales/wheezes Heart- normal rate, regular rhythm; no murmurs Abdomen- normal bowel sounds, nondistended, soft, nontender Extremities- no pretibial edema, no calf tenderness Neuro- alert, oriented x 3; no gross focal neurologic deficits Skin- warm & dry Results & Data Results & Data Vital Signs (Past 12 Hours) Vital Signs Temp Pulse Pulse Resp BP Pulse Ox O2 Del Method 01/06/23 08:03 36.4 C L 61 18 141/85 H 94 Room Air 01/06/23 03:00 36.5 C 62 21 132/82 98 Room Air 01/05/23 23:00 36.3 C L 64 21 133/83 93 Room Air 01/05/23 23:17 68 all noted and reviewed including below
--- NOTE | 2023-01-06 17:27 | Discharge Summary ---
Discharge Summary Date of Service January 06, 2023 Notes For Next Care Provider Medication Changes From Visit Prednisone taper: 60mg daily x 2 days, then 50mg daily x 1 days, then 40mg daily x 1 days, then 30mg daily x 1 days, then 20mg daily x 1 days, then 10mg daily x 1 days, then 5mg daily x 1 day, then STOP Valium 5 mg p.o. twice daily as needed for dizziness Meclizine as needed for dizziness Stop propranolol Admission HPI Per Admitting Provider 62-year-old female with PMH Edu's, dyslipidemia, MICHAEL on CPAP, HTN, morbid obesity, degenerative disc disease, essential tremor, depression, anxiety, and other problems listed below who presents to the ED for evaluation of dizziness. Patient reports that whenever she woke up this morning and sat on the edge of the bed, she had sudden onset of dizziness/room spinning around her. She was able to walk to the bathroom and she reports that she was very sweaty and nauseated. She reports associated vomiting and diarrhea. She then presented to the ED for further evaluation. Last night, patient reports she had some tingling in her left leg which was different than the usual tingling she gets from degenerative disc disease. With this morning's episode, she also reports associated tingling in the left leg, left arm, left neck, and into the face slightly. She denies chest pain, shortness of breath, palpitations. Denies headache and blurred vision. No abdominal pain. She denies any other recent illnesses, fevers, chills. No urinary symptoms. In the ED, labs are unremarkable, head and neck CTAs were unremarkable for acute findings. EKG demonstrates sinus bradycardia. She was given full dose aspirin, meclizine, Zofran, IVF. Admission Exam Per Admitting Provider Constitutional: WD/WN, vitals as above + obese Eyes: PERRL, conjunctivae normal, anicteric sclerae ENMT: external ear and nose normal, oropharynx normal Respiratory: normal respiratory effort, lungs clear to auscultation Cardiovascular: Rate/Rhythm: regular rhythm and + bradycardic Vessels: normal peripheral pulses Extremities: no edema Gastrointestinal (Abdomen): normal bowel sounds, soft, nontender, no hepatosplenomegaly Musculoskeletal: no cyanosis or clubbing, extremities motor strength 5/5 Skin: no rashes, warm and dry Neurologic: PERRL, EOMI, accommodation nl, no face palsy, no dysarthria Psychiatric: A+Ox3, euthymic affect Principal Dx & Hospital Course #1 = Principal Diagnosis (1) Vertigo: (1) Benign paroxysmal positional vertigo, possible vestibular neuritis/labyrinthitis Patient presenting from home for evaluation of dizziness, diaphoresis, nausea, vomiting. Patient also reports associated left-sided tingling. In the ED, head CT, head and neck CTAs unremarkable. Brain MRI - negative for any acute findings Status post Kwaku maneuver by PT service Neurology service consulted [place] symptoms still likely secondary to BPPV, vestibular neuritis, possible labyrinthitis Recommend trial of Valium p.o. for symptoms Also on meclizine as needed Patient had persistence of symptoms Neurology service evaluated the patient Recommend prednisone taper Symptoms gradually improving Continue 10 days prednisone taper at home as follows: Prednisone 60 mg daily x2 days, 40 mg x 1 day, 40 mg x 1 day, 20 mg x 1 day, 10 mg x 1 day, 5 mg x 1 day then stop Continue outpatient PT and OT for evaluation and treatment of vertigo Follow-up with PCP in 1 week (2) Sinus bradycardia: Plan: Patient's heart rate consistently in the 40s while in the ED Propranolol held Echo -EF 60 to 65%. LV wall motion is normal. Pulse-wave TDI of the anterior and posterior mitral annulus demonstrated normal LV relaxation. No significant valvular pathology. TSH mildly elevated, free T4 normal L[place], anaplasmosis screen: Pending Heart rate improved to the 70s Discontinue propranolol Monitor as outpatient (3) Essential tremor: Plan: Held propanolol due to bradycardia (4) Hypertension: Plan: Stable continue HCTZ and valsartan (5) Hypothyroidism: Plan: TSH 5.5 Continue levothyroxine (6) Morbid obesity: Plan: Follows with GI nutrition/weight management On naltrexone (7) Sleep apnea: Plan: CPAP as per home settings DVT PROPHYLAXIS SCDs for now Disposition Discharge to home Follow-up with PCP in 1 week Follow-up with neurology in 3 to 4 weeks plan of care discussed with patient in detail and at length all questions answered She is understanding, agreeable, comfortable with the plan of care Discharge Exam General- oriented x 3, not in distress, speaks in sentences with no effort or accessory muscle use Eyes- anicteric Neck- no JVD Lungs- clear breath sounds bilaterally, no rales/wheezes Heart- normal rate, regular rhythm; no murmurs Abdomen- normal bowel sounds, nondistended, soft, nontender Extremities- no pretibial edema, no calf tenderness Neuro- alert, oriented x 3; no gross focal neurologic deficits Skin- warm & dry Updated Medication List Medication Instructions Recorded Confirmed Type atorvastatin 20 mg tablet (Lipitor) 20 mg PO QAM 10/11/20 01/01/23 History hydrochlorothiazide 25 mg tablet 25 mg PO QAM 10/11/20 01/01/23 History levothyroxine 75 mcg tablet 75 mcg PO QAM 10/11/20 01/01/23 History famotidine 20 mg tablet 20 mg PO BID 12/28/21 01/01/23 History pantoprazole 40 mg tablet,delayed 40 mg PO QAM 12/28/21 01/01/23 History release baclofen 10 mg tablet 10 mg PO HS PRN Muscle Spasm 01/01/23 01/01/23 History bupropion HCl 300 mg 24 hr tablet, 300 mg PO DAILY 01/01/23 01/01/23 History extended release celecoxib 100 mg capsule 100 mg PO BID 01/01/23 01/01/23 History hydroxyzine HCl 25 mg tablet 25 mg PO QID PRN Anxiety 01/01/23 01/01/23 History naltrexone 50 mg tablet 25 mg PO BID 01/01/23 01/01/23 History valsartan 80 mg tablet 80 mg PO DAILY 01/01/23 01/01/23 History diazepam 5 mg tablet 5 mg PO BID PRN dizziness or 01/06/23 Rx vertigo #14 tabs meclizine 25 mg tablet 25 mg PO TID PRN dizziness #20 tabs 01/06/23 Rx prednisone 10 mg tablet 10 mg PO DIRECTED #24 tabs 01/06/23 Rx Hospital Stay Data Consultations 01/01/23 08:39 ED Decision to Admit Stat 01/03/23 09:40 Consult Neurology Routine 01/04/23 15:09 Consult Neurology Routine Diagnostic Imagining Performed 01/01/23 07:42 CT angio head w con Stat CT angio neck with con Stat CT head/brain wo con Stat FINDINGS: Brain parenchyma: The brain parenchyma is normal in appearance. There is no hemorrhage, mass effect, or evidence of acute territorial ischemia by CT criteria. There is no evidence of enhancing mass lesion on the angiogram phase images. The ventricles, sulci, and cisterns are normal in configuration. A choroid fissure cyst versus prominent perivascular space is seen on the left. Back-white matter differentiation is preserved. No extra-axial fluid collection is seen. Thoracic aorta: Visualized portions of the thoracic aorta are normal in caliber. The aortic arch demonstrates standard 3-vessel anatomy. Right carotid arterial system: The right common carotid artery is widely patent, as are the right internal and external carotid arteries. Calcified plaque is noted in the carotid bulb. Left carotid arterial system: The left common carotid artery is widely patent, as on the left internal and external carotid arteries. Calcified plaque is noted in the carotid bulb. Vertebral arteries: The vertebral arteries are widely patent bilaterally noting mild left-sided dominance. Subclavian arteries: Widely patent bilaterally. Intracranial vasculature: There is atherosclerotic calcification of the cavernous carotid and vertebral arteries. The internal carotid arteries are patent at the skull base, as are the anterior and middle cerebral arteries bilaterally. The vertebrobasilar system and posterior cerebral arteries are widely patent. The left vertebral artery is dominant. There is no aneurysm, high-grade stenosis, or focal vessel cut off seen throughout the intracranial circulation. Jugular veins: Patent bilaterally. Dural sinuses: Patent. Lung apices: Partially visualized upper lobe lung parenchyma appears clear. Soft tissues: The visualized pharyngeal soft tissues are normal in appearance noting angiographic phase technique. The oropharyngeal airway appears widely patent. The salivary and thyroid glands are normal in appearance. No cervical lymphadenopathy is seen. Skeletal structures: The skeletal structures are osteopenic. The calvarium appears intact. The cervical spine is maintained noting multilevel spondylosis. No lytic or blastic lesion is seen. Orbits: The bony orbits are intact. Orbital contents are normal as visualized noting bilateral ocular lens implants. Sinuses and mastoids: Trace mucosal thickening is noted in the right maxillary antrum. The remaining paranasal sinuses are clear. The mastoid air cells are well pneumatized. IMPRESSION: 1. There is no hemorrhage, mass effect, or evidence of acute territorial ischemia by CT criteria. 2. Unremarkable CT angiogram of the brain. 3. Unremarkable CT angiogram of the neck. 01/01/23 10:00 MR brain wo con Routine TECHNIQUE: MRI of the brain was performed utilizing various T1 and T2-weighted sequences in the axial, sagittal, and coronal planes. IV contrast was not administered for this examination. FINDINGS: Brain parenchyma: There is minimal microangiopathic change. There is no hemorrhage or mass effect. There is no restricted diffusion to suggest acute ischemia. Back-white matter differentiation is preserved. A choroid fissure cyst versus prominent perivascular space is incidentally noted on the left. No extra- axial fluid collection is seen. The cerebellar tonsils are normal in configuration. Ventricles, sulci, and cisterns: Normal in configuration. Pituitary and sella: Unremarkable. Intracranial vasculature: Normal flow voids are maintained at the skull base. Orbits: The bony orbits are grossly intact. Orbital contents are normal in appearance noting bilateral ocular lens implants. Sinuses and mastoids: There is trace mucosal thickening within the maxillary antra. The paranasal sinuses and mastoid air cells are otherwise clear. Calvarium: Unremarkable. Cervical cord: Partially visualized cervical spinal cord is normal in morphology and signal intensity. IMPRESSION: No acute intracranial abnormality. ACT 112: Negative or not required by law. 01/01/23 10:25 US venous doppler LE Routine TECHNIQUE: Real-time, grayscale, and color Doppler sonography of the deep veins of the right and left lower extremity was performed from the inguinal crease to the calf. Compression and augmentation were utilized. FINDINGS: There is no sonographic evidence of deep venous thrombosis identified in the right or left lower extremity. The common femoral, superficial femoral, and popliteal veins are patent and normally compressible bilaterally. The greater saphenous vein and the profunda femoris vein at the junction with the common femoral vein are clear in both legs. The visualized calf veins are patent bilaterally. IMPRESSION: There is no sonographic evidence of deep venous thrombosis identified in the right or left lower extremity. ACT 112: Negative or not required by law. Pending Results Patient Have Any Pending Studies at Discharge: No Discharge Instructions Given to Patient (Per Discharging Provider) PLEASE REFER TO YOUR NEW MEDICATION LIST AND FOLLOW INSTRUCTIONS CAREFULLY. YOUR NEW MEDICATIONS INCLUDE: PREDNISONE- take as follows 60mg daily x 2 days, then 50mg daily x 1 days, then 40mg daily x 1 days, then 30mg daily x 1 days, then 20mg daily x 1 days, then 10mg daily x 1 days, then 5mg daily x 1 day, then STOP MECLIZINE - as needed for dizziness STOP PROPRANOLOL. CONTINUE PHYSICAL AND OCCUPATIONAL THERAPY OUTPATIENT. PLEASE CALL YOUR PRIMARY CARE PHYSICIAN OR RETURN TO THE ER IF WITH WORSENING OF SYMPTOMS, INCLUDING WORSENING OF DIZZINESS, BLURRING OF VISION, ETC FOLLOW UP WITH PRIMARY CARE PHYSICIAN OUTLINED ABOVE. FOLLOW UP WITH [facility] NEUROLOGIST. YOU MAY CALL [phone] FOR AN APPOINTMENT. YOUR PRIMARY CARE PHYSICIAN CAN ALSO HELP YOU SET UP THIS APPOINTMENT. TAKE CARE. Total Time Total Time Spent Total Time Spent (In Minutes): >30 minutes
== END 2023-01-06 11:44 | disposition home or self-care (01) | DRG 149 ==
LOC: 2E 07:15 → ED 07:15 → SUATTDRO 08:56 → 2E 10:19